=== PATIENT | female | born 1945 | race Caucasian/White ===

== ENCOUNTER 2018-02-13 14:47 | Outpatient (REF) | payer MEDICARE, MEDICAID, SELFPAY ==
[2018-02-13 15:39] LABS: Bilirubin Negative (Negative); Blood Trace-intact (Negative); Clarity Cloudy; Glucose Negative (Negative); Ketones Negative (Negative); Leukocyte Esterase Moderate (Negative); Nitrite Positive (Negative); Urobilinogen 0.2 EU/dL (Up TO 0.2)
[2018-02-13 16:53] LABS: Bacteria Many HPF (Negative); C & S Indicated? Yes; Casts Negative LPF (Negative); Crystals Negative HPF (Negative); Epithelial Cells Negative HPF (Negative); Mucus Negative (Negative); Other Cells Negative (Negative); RBC 0-2 (0-2); WBC 20-50 HPF (0-5)
== END 2018-02-13 15:07 ==
LOC: LBN 14:47
PROVIDERS: PCP Family Medicine; Visit Provider Family Medicine
DX: N39.0 Urinary tract infection, site not specified (principal)
CPT/HCPCS: 87077; 81003; 81015; 87086; 87186

== ENCOUNTER 2019-12-25 11:31 | Outpatient (REF) | payer MEDICARE, MEDICAID, SELFPAY ==
[2019-12-25 11:59] LABS: Abs Immature Grans 0.01 10^3/uL (0.0-0.06); Absolute Basophil Count 0.05 10^3/uL (0.0-0.2); Absolute Eosinophil Count 0.17 10^3/uL (0.0-0.7); Absolute Lymphocyte Count 0.93 10^3/uL (1.2-3.4); Absolute Monocyte Count 0.82 10^3/uL (0.1-0.8); Absolute Neutrophil Count 5.52 10^3/uL (1.2-6.7); Basophils % 0.7; Eosinophils % 2.3; HCT 46.9 % (36.0-46.0); HGB 14.6 g/dL (11.2-15.7); Immature Grans % 0.1; Lymphocytes % 12.4; MCH 30.4 pg (27.0-33.0); MCHC 31.1 % (32.0-36.0); MCV 97.5 fL (80-95); MPV 11.6 fL (8.0-11.0); Monocytes % 10.9; Neutrophils % 73.6; Nucleated RBC 0 %; Platelet Count 230 10^3/uL (130-400); RBC 4.81 10^6/uL (3.93-5.22); RDW 12.7 % (11.7-14.6); RDW-SD 45.7 fL
[2019-12-25 12:04] LABS: Anion Gap 5.4 mmol/L (3-11); BUN 12 mg/dL (7-18); CO2 31.6 mmol/L (21.0-32.0); CREATININE 0.77 mg/dL (0.55-1.02); Chloride 99 mmol/L (98-107); Glucose 110 mg/dL (74-106); Potassium 4.4 mmol/L (3.5-5.1); Sodium 136 mmol/L (136-145)
[2019-12-25 12:09] LABS: Calcium 8.8 mg/dL (8.5-10.1)
== END 2019-12-25 11:51 ==
LOC: LBN 11:31
PROVIDERS: PCP Family Medicine; Visit Provider Family Medicine
DX: J44.9 Chronic obstructive pulmonary disease, unspecified (principal); R05 Cough; F20.9 Schizophrenia, unspecified
CPT/HCPCS: 80048; 85025

== ENCOUNTER 2020-05-05 20:11 | Outpatient (REF) | payer MEDICARE, MEDICAID, SELFPAY ==
[2020-05-05 14:04] LABS: Abs Immature Grans 0.04 10^3/uL (0.0-0.06); Absolute Basophil Count 0.05 10^3/uL (0.0-0.2); Absolute Eosinophil Count 0.01 10^3/uL (0.0-0.7); Absolute Monocyte Count 0.39 10^3/uL (0.1-0.8); Basophils % 0.4; Eosinophils % 0.1; HCT 50.3 % (36.0-46.0); HGB 15.9 g/dL (11.2-15.7); Immature Grans % 0.3; Lymphocytes % 7.4; MCH 30.8 pg (27.0-33.0); MCHC 31.6 % (32.0-36.0); MCV 97.3 fL (80-95); MPV 11.7 fL (8.0-11.0); Monocytes % 2.9; Neutrophils % 88.9; Nucleated RBC 0 %; Platelet Count 286 10^3/uL (130-400); RBC 5.17 10^6/uL (3.93-5.22); RDW 13.1 % (11.7-14.6); RDW-SD 47.4 fL; WBC 13.48 10^3/uL (4.4-10.8)
[2020-05-05 14:05] LABS: Absolute Neutrophil Count 11.98 10^3/uL (1.2-6.7)
[2020-05-05 14:12] LABS: Anion Gap 6.9 mmol/L (3-11); BUN 24 mg/dL (7-18); CO2 33.1 mmol/L (21.0-32.0); CREATININE 0.8 mg/dL (0.55-1.02); Calcium 9.4 mg/dL (8.5-10.1); Chloride 99 mmol/L (98-107); Glucose 123 mg/dL (74-106); Potassium 4.2 mmol/L (3.5-5.1); Sodium 139 mmol/L (136-145)
== END 2020-05-05 20:12 | disposition home or self-care (01) ==
LOC: NCHCN 20:11
PROVIDERS: PCP Family Medicine; Visit Provider Family Medicine
DX: R53.83 Other fatigue (principal); J44.9 Chronic obstructive pulmonary disease, unspecified; J06.9 Acute upper respiratory infection, unspecified; J44.1 Chronic obstructive pulmonary disease with (acute) exacerbation
CPT/HCPCS: 80048; 85025

== ENCOUNTER 2020-05-06 12:48 | Inpatient (IN) | payer MEDICARE, MEDICAID, SELFPAY ==
[2020-05-06] VITALS (33 sets, daily range): BP systolic 157–181; BP diastolic 73–93; PULSE 88–119; RESP 14–28; TEMP 32–36.8; O2SAT 80–97
--- NOTE | 2020-05-06 11:00 | DI.RAD_ITS ---
TECHNIQUE: 2D digital imaging was performed. COMPARISON: No exams were available for comparison FINDINGS: MEDIASTINUM: Normal. HEART: Normal. PULMONARY VASCULATURE: Normal. LUNGS: Linear atelectasis is seen in the left lung base. No focal consolidating infiltrates. PLEURAL SPACE: No pleural effusion or pneumothorax. BONE:Within normal limits for the patient's age. There is a mild right convex curvature of the thora cic spine. OTHER FINDINGS:Normal. IMPRESSION: No acute pulmonary findings. DATA REPOSITORY: RADIATION DOSE DELIVERED:
[2020-05-06] MEDS: Cefepime 2 GM VIAL (12:48)
[2020-05-06] MEDS: Doxycycline 100 MG VIAL (12:48)
[2020-05-06] MEDS: methylPREDNISolone SUCC 125 MG VIAL (12:48)
--- NOTE | 2020-05-06 13:45 | RT.EKG_ITS ---
APPROVED REPORT Exam: Resting ECG Patient Location: E HR:105 bpm ECG Measurements Heart Rate 105 AXIS IN 162 P 93 QRSd 79 QRS 80 QT 349 T 51 QTc 463 Conclusion Sinus tachycardia...rate> 99
--- NOTE | 2020-05-06 14:28 | RESPIRATORY ---
05/06/20 Pt with hx of COPD with rhonchorous breath sounds brought in by [facility] on 3 LPM NC SPO2 91%. A few houors after Pt's ED stay it is noted that Pt is desatting to 83% on 4 LPM NC. Pt was transitioned to High Flow NC System . Pt was also given an acapella to to clear secretions. Pt needs 1:1 instructions for use.
[2020-05-06 15:00] LABS: Prothrombin Time 9.7 sec (9.3-11.0)
[2020-05-06 15:01] LABS: Lactate 1.2 mmol/L (0.6-1.4)
[2020-05-06 15:02] LABS: ALT 22 U/L (14-59); AST 19 U/L (15-37); Albumin 3.4 g/dL (3.4-5.0); Alkaline Phosphatase 82 U/L (46-116); BUN 28 mg/dL (7-18); Bilirubin, Direct 0.1 mg/dL (0.0-0.2); Bilirubin, Total 0.5 mg/dL (0.2-1.0); CREATININE 0.8 mg/dL (0.55-1.02); Calcium 9.3 mg/dL (8.5-10.1); Chloride 99 mmol/L (98-107); Glucose 137 mg/dL (74-106); Potassium 4.1 mmol/L (3.5-5.1); Sodium 136 mmol/L (136-145); Total Protein 7.7 g/dL (6.4-8.2)
[2020-05-06 15:03] LABS: HCT 49.4 % (36.0-46.0); MCH 31.1 pg (27.0-33.0); MCHC 32.4 % (32.0-36.0); MCV 96.1 fL (80-95); Magnesium 2.4 mg/dL (1.8-2.4); NT-proBNP 49 pg/mL (<300); RBC 5.14 10^6/uL (3.93-5.22); Troponin I < 0.05 ng/mL (<0.06); WBC 13.85 10^3/uL (4.4-10.8)
[2020-05-06 15:04] LABS: Abs Immature Grans 0.05 10^3/uL (0.0-0.06); Absolute Basophil Count 0.03 10^3/uL (0.0-0.2); Absolute Lymphocyte Count 1.29 10^3/uL (1.2-3.4); Absolute Monocyte Count 0.15 10^3/uL (0.1-0.8); Absolute Neutrophil Count 12.33 10^3/uL (1.2-6.7); Basophils % 0.2; Immature Grans % 0.4; Lymphocytes % 9.3; MPV 10.6 fL (8.0-11.0); Monocytes % 1.1; Nucleated RBC 0 %; Platelet Count 279 10^3/uL (130-400); RDW 13.3 % (11.7-14.6); RDW-SD 47.7 fL
[2020-05-06 15:19] LABS: COVID-19 PCR Negative (Negative); Influenza A PCR Negative (Negative); Influenza B PCR Negative (Negative); RSV PCR Negative (Negative)
--- NOTE | 2020-05-06 16:20 | W.ED.FU ---
Please refer to downtime paper documentation regarding ED course.
--- NOTE | 2020-05-06 16:38 | HPE_ITS ---
Date of service: 05/06/20 Time of Service: 16:38 Assessment and Plan Assessment and plan (1) COPD (chronic obstructive pulmonary disease): Status: Chronic Assessment and plan: This appears to be COPD exacerbation perhaps brought on by a viral illness. She is Covid negative, flu negative, RSV negative. Her chest x-ray does not show a specific infiltrate. She is profoundly hypoxic. I believe there is mucous plugging going on because of her poor ability to clear secretions. We will try improved pulmonary toilet, oxygen supplementation, corticosteroids. Empiric treatment with cefepime which should cover nosocomial pathogens such as Pseudomonas. She has been on azithromycin and Levaquin prior. Blood cultures are pending. She is tolerating high flow nasal cannula at this time. (2) Schizophrenia: Status: Chronic Assessment and plan: Longstanding underlying schizophrenia. She only allows limited interventions. Management at the [facility] included mostly allowing her to refuse treatments and limit things that aggravate her. She is DNR/DNI. I confirmed this with her guardian. History of Present Illness History of Present Illness Chief Complaint: COPD exacerbation/hypoxia N arrative: This is a 74-year-old woman who resides at the [facility]. Today she was noted to be markedly hypoxic. She was sitting on the chair in the living room with 2 L of nasal cannula oxygen measuring 84% saturation. She was congested coughing. She had been on a course of azithromycin and as of today received a dose of Levaquin 750 mg with plans to start a prednisone taper tomorrow. Given her deteriorating status she was sent to the emergency room today for further evaluation. In the emergency room her initial sats were in the low 80% range. When prompted to cough or deep breath she could bring them up but for the most part simple nasal cannula oxygen was not resolving her hypoxia. She was transition to high flow nasal cannula at 45 L / 70% and she is maintaining her sats in the 96% range. She is started on cefepime, doxycycline, Solu-Medrol. She is admitted to [facility] for further monitoring. Review of Systems Narrative: Patient has always had a harsh raspy cough. She allows only limited interventions. She will follow commands to help clear secretions but usually will do it on her own. She has been a behavioral problem at times with outbursts. She prefers to be left alone. She only allows limited interventions. Taking blood pressures tends to set her off. She has preferred a hands off type of management. Staff at the [facility] note that she has been increasingly weak lately and are requesting a physical therapy consult. [facility] Medical History (Updated 05/06/20 @ 16:44 by Soy Deng MD) Adhesive capsulitis COPD (chronic obstructive pulmonary disease) Dysthymic disorder Emphysema of lung History of tobacco use Hypertension Olecranon bursitis Recurrent vomiting Schizophrenia Surgical History (Updated 05/06/20 @ 16:44 by Soy Deng MD) History of appendectomy History of total abdominal hysterectomy Social History (Updated 05/06/20 @ 16:46 by Soy Deng MD) Smoking/Tobacco Use Status: Former Tobacco Use tobacco type: cigarettes Smoking risk assessment performed?: Yes Alcohol Intake: former Additional Social history: Sister, Bridget Joseph, he is her guardian. [id number] Meds Home Medications and Allergies Allergies Allergy/AdvReac Type Severity Reaction Status Date / Time wool Allergy Unverified 05/06/20 14:20 Home Medications Medication Instructions Recorded Confirmed Type acetaminophen [Acetaminophen Extra 500 mg PO QID PRN 05/06/20 05/06/20 History Strength] citalopram [Celexa] 20 mg PO DAILY 05/06/20 05/06/20 History dextromethorphan-guaifenesin 10 ml Q4H PRN PRN 05/06/20 05/06/20 History [Tussin Cough DM] ergocalciferol (vitamin D2) See Rx Instructions .ROUTE .COMPLEX 05/06/20 05/06/20 History [Drisdol] ipratropium-albuterol [Combivent] 1 spray INHALATION Q4H WHILE AWAKE 05/06/20 05/06/20 History levofloxacin [Levaquin] 750 mg PO Q24H 05/06/20 05/06/20 History prednisone See Rx Instructions .ROUTE .COMPLEX 05/06/20 05/06/20 History risperidone [Risperdal] 0.5 mg PO TID 05/06/20 05/06/20 History Exam Narrative Exam Narrative: On exam she is quite disheveled appearing. She will converse but at times gets somewhat irritated. She has a wet sounding cough with a lot of upper airway transmitted sounds. Her lung sounds are notable for rhonchorous breath sounds throughout. No specific rales are heard. Her heart sounds are notable for a low buzzing murmur in the left upper sternal border 1-2 over 6. Her abdomen quite rounded soft and overall nontender. Her legs show some overlying hair there is no significant edema they overall appear to be well perfused. She has no open sores or lesions. Neurologically she is moving upper and lower extremities well and can follow commands. Results Labs Result diagrams: 05/06/20 10:55 05/06/20 10:55 Labs: Laboratory Results - last 24 hr 05/06/20 05/06/20 05/06/20 10:55 10:55 10:55 WBC 13.85 H RBC 5.14 Hgb 16.0 H Hct 49.4 H MCV 96.1 H MCH 31.1 MCHC 32.4 RDW 13.3 Plt Count 279 MPV 10.6 Immature Gran % 0.4 Neutrophils % 89.0 Lymphocytes % 9.3 Monocytes % 1.1 Eosinophils % 0.0 Basophils % 0.2 Nucleated RBC % 0 Absolute Neutrophils 12.33 H Absolute Lymphocytes 1.29 Absolute Monocytes 0.15 Absolute Eosinophils 0.00 Absolute Basophils 0.03 PT 9.7 INR 1.0 VBG Lactate Sodium 136 Potassium 4.1 Chloride 99 Carbon Dioxide 31.0 Anion Gap 6.0 BUN 28 H Creatinine 0.8 Estimated GFR/1.73 m2 >= 60.00 Glucose 137 H Calcium 9.3 Magnesium 2.4 Total Bilirubin 0.5 Conjugated Bilirubin 0.1 AST 19 ALT 22 Alkaline Phosphatase 82 Troponin I < 0.05 NT-Pro-B Natriuret Pep 49 Total Protein 7.7 Albumin 3.4 COVID-19 Source SARS-CoV-2 (PCR) Influenza Type A (PCR) Influenza Type B (PCR) RSV (PCR) 05/06/20 05/06/20 10:55 11:07 WBC RBC Hgb Hct MCV MCH MCHC RDW Plt Count MPV Immature Gran % Neutrophils % Lymphocytes % Monocytes % Eosinophils % Basophils % Nucleated RBC % Absolute Neutrophils Absolute Lymphocytes Absolute Monocytes Absolute Eosinophils Absolute Basophils PT INR VBG Lactate 1.2 Sodium Potassium Chloride Carbon Dioxide Anion Gap BUN Creatinine Estimated GFR/1.73 m2 Glucose Calcium Magnesium Total Bilirubin Conjugated Bilirubin AST ALT Alkaline Phosphatase Troponin I NT-Pro-B Natriuret Pep Total Protein Albumin COVID-19 Source Nasopharyx SARS-CoV-2 (PCR) Negative Influenza Type A (PCR) Negative Influenza Type B (PCR) Negative RSV (PCR) Negative Last Vital Signs Pulse 91 H 05/06/20 15:16 Resp 17 05/06/20 16:00 BP 159/73 H 05/06/20 15:16 Pulse Ox 97 05/06/20 14:50 COVID-19 Screening Have you, or household traveled for leisure in last 14 days?: No Recent travel in the [place] within the last 14 days?: No Recent out of the country travel within the last 14 days?: No Exposure or possible exposure to illness during travel?: No Had IN PERSON contact w/suspected or confirmed C-19 person: No Symptoms noted since travel?: Lower Respiratory (Cough)
[2020-05-06 19:12] LABS: D-Dimer 447 ng/mlFEU (<500)
[2020-05-06] MEDS: risperiDONE 0.5 MG TAB PO (20:08)
[2020-05-06] MEDS: methylPREDNISolone SUCC 40 MG VIAL IVP (20:09)
[2020-05-06] MEDS: Normal Saline Flush 10 ML SYR IVP (20:09)
[2020-05-06] MEDS: Ipratropium/Albuterol 4 GM 120 PUFF INH IH ×2 (20:57→23:30)
[2020-05-06] MEDS: CEFEPIME 2 GM in Normal Saline 100 ML IVPB (23:26)
[2020-05-07] VITALS (7 sets, daily range): BP systolic 151–177; BP diastolic 71–92; PULSE 63–75; RESP 17–24; TEMP 31–36.4; O2SAT 92–95
[2020-05-07] MEDS: Metoprolol 25 MG TAB PO ×3 (00:08→20:00)
[2020-05-07] MEDS: Ipratropium/Albuterol 4 GM 120 PUFF INH IH ×6 (04:07→23:19)
[2020-05-07] MEDS: methylPREDNISolone SUCC 40 MG VIAL IVP ×3 (04:07→20:00)
[2020-05-07] MEDS: Normal Saline Flush 10 ML SYR IVP ×3 (04:08→19:59)
[2020-05-07 07:06] LABS: Abs Immature Grans 0.05 10^3/uL (0.0-0.06); Absolute Eosinophil Count 0.01 10^3/uL (0.0-0.7); Absolute Monocyte Count 0.36 10^3/uL (0.1-0.8); Basophils % 0.2; Eosinophils % 0.1; HGB 15.1 g/dL (11.2-15.7); Immature Grans % 0.4; Lymphocytes % 6.5; MCH 30.7 pg (27.0-33.0); MCHC 32.1 % (32.0-36.0); MCV 95.5 fL (80-95); MPV 10.4 fL (8.0-11.0); Monocytes % 2.8; Nucleated RBC 0 %; Platelet Count 283 10^3/uL (130-400); RBC 4.92 10^6/uL (3.93-5.22); WBC 12.71 10^3/uL (4.4-10.8)
[2020-05-07 07:12] LABS: Absolute Basophil Count 0.03 10^3/uL (0.0-0.2); Absolute Lymphocyte Count 0.83 10^3/uL (1.2-3.4); Absolute Neutrophil Count 11.44 10^3/uL (1.2-6.7)
[2020-05-07 07:15] LABS: Anion Gap 7.5 mmol/L (3-11); BUN 20 mg/dL (7-18); CO2 30.5 mmol/L (21.0-32.0); CREATININE 0.7 mg/dL (0.55-1.02); Calcium 9.1 mg/dL (8.5-10.1); Chloride 100 mmol/L (98-107); Glucose 143 mg/dL (74-106); Potassium 3.9 mmol/L (3.5-5.1); Sodium 138 mmol/L (136-145)
[2020-05-07] MEDS: Omeprazole 20 MG CAPCR PO (08:40)
[2020-05-07] MEDS: risperiDONE 0.5 MG TAB PO ×3 (08:40→20:00)
[2020-05-07] MEDS: Citalopram 20 MG TAB PO (08:40)
[2020-05-07 10:22] LABS: Procalcitonin < 0.1 ng/mL
--- NOTE | 2020-05-07 10:22 | NT_ITS ---
Date of service: 05/07/20 Time of Service: 10:33 PT Notes Visit Reasons: Pneumonia Lynn was gently approached today for a possible PT evaluaation. Patient refused strongly stating that she does not like exercises even while she was at the SNF she resides in. [employer] Sophie was updated about patient's refusal. Thank you for the opportunity to participate in the care of this patient. Xiao Purdy PT, DPT, CLT [facility] [place], [place]
--- NOTE | 2020-05-07 11:50 | W.PM.DS.N ---
Date of service: 05/08/20 Time of Service: 10:47 DS: Diagnosis Discharge Diagnosis (1) COPD (chronic obstructive pulmonary disease): (2) Schizophrenia: Discharge Plan Disposition Patient Disposition: ICF (LEVEL 2) [facility] Condition: Improving Discharge Details Reason For Visit: PNEUMONIA Admit Date/Time: 05/06/20 14:04 Admit Provider: Adithya Negron Attending Provider: Adithya Negron Primary Care Provider: Divya Beverly [facility] Course Hospital Course: This is a 74-year-old woman who resides at the [facility]. she was being treated outpatient for copd exac and was placed on azithromycin and oral steroids. she was noted to be hypoxic to 84% while at rest with 2 L of nasal cannula oxygen. Her azithromycin was changed to and she received a dose of Levaquin 750 mg with plans to start a prednisone taper. Given her deteriorating status she was sent to the emergency room today for further evaluation. Work up in the ED showed stable vitals, hypoxia, and no evidence of pneumonia on xray, her covid testing was negative. She is started on cefepime, doxycycline, Solu-Medrol and admitted to [facility] for further monitoring. She was non compliant with evaluation by physical therapy, refused some medication, but is oxygenating well on room air now. It is reasonable at this point to transition her to oral medication and discharge her back to her environment which may be more conducive to her recovery. Since she had only received one dose of her antibiotic outpatient, it is reasonable to finish the course she was to receive. She will be discharged to complete her course of levaquin and taper steroids as directed. discharge discussed with Dr Negron. Home Meds and New Rx's Prescriptions: Continued ranitidine HCl 150 mg tablet 150 mg PO BID Qty: 180 RF: 4 meloxicam 15 MG tablet 15 mg PO DAILY RF: 0 alendronate 70 MG tablet 70 mg PO .WEEKLY RF: 0 aspirin [Aspir-81] 81 MG tablet,delayed release (DR/EC) 81 mg PO DAILY RF: 0 risperidone [Risperdal] 2 MG tablet 2 mg PO HS RF: 0 sodium bicarbonate 650 MG tablet 1,300 mg PO BID RF: 0 paroxetine HCl 20 MG tablet 20 mg PO DAILY RF: 0 conjugated estrogens [Premarin] 0.625 MG tablet 0.625 mg PO DAILY RF: 0 nifedipine [Adalat CC] 60 MG tablet extended release 60 mg PO DAILY RF: 0 multivitamin 1 EACH capsule 1 tab PO DAILY RF: 0 calcium carbonate [Tums] 200 MG tablet,chewable 1 tab PO TID RF: 0 oxycodone-acetaminophen 1 TAB tablet 1 tab PO Q4H PRN PRN (Reason: Pain) Qty: 60 RF: 0 hydrocodone-acetaminophen 1 TAB tablet 0.5 - 1 tab PO Q4H PRN PRN (Reason: Pain) Qty: 20 RF: 0 dextromethorphan-guaifenesin 10-100 mg/5 mL Liquid 10 ml Q4H PRN PRN (Reason: Cough) RF: 0 acetaminophen [Acetaminophen Extra Strength] 500 mg Tablet 500 mg PO QID PRNRF: 0 ipratropium-albuterol 18-103 mcg/actuation Aerosol 1 spray INHALATION Q4H WHILE AWAKE RF: 0 levofloxacin 750 mg Tablet 750 mg PO Q24H RF: 0 citalopram [Celexa] 20 mg Tablet 20 mg PO DAILY RF: 0 ergocalciferol (vitamin D2) [Drisdol] 1,250 mcg (50,000 unit) Capsule See Rx Instructions .ROUTE .COMPLEX RF: 0 risperidone [Risperdal] 0.5 mg Tablet 0.5 mg PO TID RF: 0 prednisone 10 mg Tablet See Rx Instructions .ROUTE .COMPLEX RF: 0 Discontinued cephalexin 500 MG tablet 500 mg PO QID Qty: 56 RF: 0 cephalexin 500 MG capsule 500 mg PO Q6H Qty: 30 RF: 1 Discharge Instructions Instructions: COPD (Chronic Obstructive Pulmonary Disease) (DC) Additional Instructions: continue levaquin as previously directed. continue steroid taper as previously directed. push fluids to stay well hydrated. resume other usual medications as directed. Stand Alone Forms: Nursing Discharge Form Referrals: Practice Provider [Provider Group] (with pcp in 2-3 days) Activity:: Activity as Tolerated Equipment/Supplies:: No Equipment Needed Diet:: As Tolerated Discharge Orders Discharge Orders: Discharge Order (Routine); Ordered 05/08/20 Ordered By: Sophie Beckwith Discharge Data Discharge Date/Time-TO BE ENTERED AT DEPARTURE: 05/08/20 12:07 DS: Summary Time Spent with Patient providing and/or coordinating discharge services: Greater than 30 minutes Status at Discharge Functional status at discharge: uses cane/walker Overall status at discharge: patient is progressing back to baseline Mental Status: mental status grossly normal Speech and Movement: speech and movement normal Mood: labile mood Affect: irritable affect Exam Const General: no acute distress and ill appearing chronically Nutritional Appearance: overweight Orientation: alert and awake HENMT Head: normal to inspection, normocephalic and atraumatic Mouth: oral mucosae normal Chest Chest: normal inspection of the chest Resp Effort & Inspection: normal respiratory effort Auscultation: diminished lung sounds (scattered course breath sound) bilaterally in the lower lung gillespie Cardio Rate: regular rate Rhythm: regular rhythm GI Inspection: normal to inspection Palpation: soft Auscultation: normal bowel sounds Neuro General: patient alert, patient awake and moves all extremities Psych Mental Status: mental status grossly normal Speech and Movement: speech and movement normal Mood: labile mood Affect: irritable affect DS: Data Vitals/I&O Vitals and I&O: Vital Signs Temperature 36.3 C L 05/07/20 11:42 Temperature Source Tympanic 05/07/20 11:42 Pulse 69 05/07/20 11:42 Pulse Rhythm Regular 05/06/20 21:03 Pulse 109 H 05/06/20 16:00 Respiratory Rate 19 05/07/20 11:42 Respiratory Effort Short of Breath 05/06/20 21:03 Respiratory Depth Normal 05/06/20 21:03 Respiratory Pattern Normal 05/06/20 21:03 Blood Pressure 151/71 H 05/07/20 11:42 Blood Pressure Mean 94 05/06/20 15:16 Pulse Oximetry 95 05/07/20 11:42 Oxygen Delivery Method Bi-pap 05/07/20 11:42 Oxygen Flow Rate 0 05/07/20 11:42 Fraction of Inspired Oxygen (FIO2) 40 05/07/20 08:00 Pain Level 0 05/06/20 23:44 Comment 05/07/20 03:00 Intake & Output 05/06/20 05/06/20 05/07/20 11:59 23:59 11:59 Intake Total 240 / 240 Balance 240 / 240 Weight 75 kg 73.1 kg Intake: Oral 240 / 240 Other: Urine Color Yellow Urine Appearance Clear Urine Odor Strong Voiding Methods Bedside Commode Incontinent Data Completed and Pending Labs on day of discharge: Labs from last 24 hours 05/07/20 05/07/20 05/07/20 06:25 06:25 06:25 WBC 12.71 H RBC 4.92 Hgb 15.1 Hct 47.0 H MCV 95.5 H MCH 30.7 MCHC 32.1 RDW 13.0 Plt Count 283 MPV 10.4 Immature Gran % 0.4 Neutrophils % 90.0 Lymphocytes % 6.5 Monocytes % 2.8 Eosinophils % 0.1 Basophils % 0.2 Nucleated RBC % 0 Absolute Neutrophils 11.44 H Absolute Lymphocytes 0.83 L Absolute Monocytes 0.36 Absolute Eosinophils 0.01 Absolute Basophils 0.03 PT INR D-Dimer VBG Lactate Sodium Potassium Chloride Carbon Dioxide Anion Gap BUN Creatinine Estimated GFR/1.73 m2 Glucose Calcium Magnesium Total Bilirubin Conjugated Bilirubin AST ALT Alkaline Phosphatase Troponin I C-Reactive Protein 0.30 NT-Pro-B Natriuret Pep Total Protein Albumin Procalcitonin < 0.1 COVID-19 Source SARS-CoV-2 (PCR) Influenza Type A (PCR) Influenza Type B (PCR) RSV (PCR) 05/07/20 05/06/20 05/06/20 06:25 11:07 10:55 WBC RBC Hgb Hct MCV MCH MCHC RDW Plt Count MPV Immature Gran % Neutrophils % Lymphocytes % Monocytes % Eosinophils % Basophils % Nucleated RBC % Absolute Neutrophils Absolute Lymphocytes Absolute Monocytes Absolute Eosinophils Absolute Basophils PT INR D-Dimer VBG Lactate 1.2 Sodium 138 Potassium 3.9 Chloride 100 Carbon Dioxide 30.5 Anion Gap 7.5 BUN 20 H D Creatinine 0.7 Estimated GFR/1.73 m2 >= 60.00 Glucose 143 H Calcium 9.1 Magnesium Total Bilirubin Conjugated Bilirubin AST ALT Alkaline Phosphatase Troponin I C-Reactive Protein NT-Pro-B Natriuret Pep Total Protein Albumin Procalcitonin COVID-19 Source Nasopharyx SARS-CoV-2 (PCR) Negative Influenza Type A (PCR) Negative Influenza Type B (PCR) Negative RSV (PCR) Negative 05/06/20 05/06/20 05/06/20 10:55 10:55 10:55 WBC 13.85 H RBC 5.14 Hgb 16.0 H Hct 49.4 H MCV 96.1 H MCH 31.1 MCHC 32.4 RDW 13.3 Plt Count 279 MPV 10.6 Immature Gran % 0.4 Neutrophils % 89.0 Lymphocytes % 9.3 Monocytes % 1.1 Eosinophils % 0.0 Basophils % 0.2 Nucleated RBC % 0 Absolute Neutrophils 12.33 H Absolute Lymphocytes 1.29 Absolute Monocytes 0.15 Absolute Eosinophils 0.00 Absolute Basophils 0.03 PT 9.7 INR 1.0 D-Dimer 447 VBG Lactate Sodium 136 Potassium 4.1 Chloride 99 Carbon Dioxide 31.0 Anion Gap 6.0 BUN 28 H Creatinine 0.8 Estimated GFR/1.73 m2 >= 60.00 Glucose 137 H Calcium 9.3 Magnesium 2.4 Total Bilirubin 0.5 Conjugated Bilirubin 0.1 AST 19 ALT 22 Alkaline Phosphatase 82 Troponin I < 0.05 C-Reactive Protein NT-Pro-B Natriuret Pep 49 Total Protein 7.7 Albumin 3.4 Procalcitonin COVID-19 Source SARS-CoV-2 (PCR) Influenza Type A (PCR) Influenza Type B (PCR) RSV (PCR) 05/06/20 16:10 Nose MRSA Screen - Pending 05/06/20 11:40 Blood Blood Culture - Pending 05/06/20 11:15 Blood Blood Culture - Pending Preliminary micro results at discharge 05/06/20 16:10 MRSA Screen - Pending Nose 05/06/20 11:40 Blood Culture - Pending Blood 05/06/20 11:15 Blood Culture - Pending Blood [facility] Medical History (Updated 05/07/20 @ 14:38 by Suze Phillips) Adhesive capsulitis COPD (chronic obstructive pulmonary disease) Dysthymic disorder Emphysema of lung History of tobacco use Hypertension Olecranon bursitis Recurrent vomiting Schizophrenia Surgical History (Updated 05/07/20 @ 14:38 by Suze Phillips) History of appendectomy History of total abdominal hysterectomy Social History (System 05/07/20 @ 14:38 by Suze Phillips) Smoking/Tobacco Use Status: Former Tobacco Use tobacco type: cigarettes Smoking risk assessment performed?: Yes Alcohol Intake: former Drug use: Never Additional Social history: Sister, Bridget Joseph, he is her guardian. [phone]
[2020-05-07] MEDS: CEFEPIME 2 GM in Normal Saline 100 ML IVPB (11:53)
[2020-05-07] MEDS: Normal Saline 500 ML 30 ML IV (11:55)
--- NOTE | 2020-05-07 15:22 | W.PM.PROGNOT ---
Date of Service Date of service: 05/07/20 Time of Service: 15:22 Assessment and Plan Assessment and plan (1) Schizophrenia: Status: Chronic Assessment and plan: Longstanding underlying schizophrenia. She only allows limited interventions. Management at the [facility] included mostly allowing her to refuse treatments and limit things that aggravate her. (2) COPD (chronic obstructive pulmonary disease): Status: Chronic Assessment and plan: COPD exacerbation perhaps brought on by a viral illness. Covid negative, flu negative, RSV negative. Her chest x-ray does not show a specific infiltrate. She is now oxygenating well on room air. was placed on IV steroids, cefepime Subjective Subjective Patient reports: no new complaints, tolerating liquids well, tolerating a regular diet and afebrile Exam Const General: no acute distress and ill appearing chronically Nutritional Appearance: overweight Orientation: alert and awake HENMA Head: normal to inspection, normocephalic and atraumatic Mouth: oral mucosae normal Chest Chest: normal inspection of the chest Resp Effort & Inspection: normal respiratory effort Auscultation: diminished lung sounds (scattered course breath sound) bilaterally in the lower lung gillespie Cardio Rate: regular rate Rhythm: regular rhythm GI Inspection: normal to inspection Palpation: soft Auscultation: normal bowel sounds Neuro General: patient alert, patient awake and moves all extremities Objective Last Vital Signs Temp 36.3 C L 05/07/20 11:42 Pulse 69 05/07/20 11:42 Resp 19 05/07/20 11:42 BP 151/71 H 05/07/20 11:42 Pulse Ox 95 05/07/20 11:42 Laboratory Results - last 24 hr 05/06/20 05/07/20 05/07/20 10:55 06:25 06:25 WBC 12.71 H RBC 4.92 Hgb 15.1 Hct 47.0 H MCV 95.5 H MCH 30.7 MCHC 32.1 RDW 13.0 Plt Count 283 MPV 10.4 Immature Gran % 0.4 Neutrophils % 90.0 Lymphocytes % 6.5 Monocytes % 2.8 Eosinophils % 0.1 Basophils % 0.2 Nucleated RBC % 0 Absolute Neutrophils 11.44 H Absolute Lymphocytes 0.83 L Absolute Monocytes 0.36 Absolute Eosinophils 0.01 Absolute Basophils 0.03 D-Dimer 447 Sodium 138 Potassium 3.9 Chloride 100 Carbon Dioxide 30.5 Anion Gap 7.5 BUN 20 H D Creatinine 0.7 Estimated GFR/1.73 m2 >= 60.00 Glucose 143 H Calcium 9.1 C-Reactive Protein Procalcitonin 05/07/20 05/07/20 06:25 06:25 WBC RBC Hgb Hct MCV MCH MCHC RDW Plt Count MPV Immature Gran % Neutrophils % Lymphocytes % Monocytes % Eosinophils % Basophils % Nucleated RBC % Absolute Neutrophils Absolute Lymphocytes Absolute Monocytes Absolute Eosinophils Absolute Basophils D-Dimer Sodium Potassium Chloride Carbon Dioxide Anion Gap BUN Creatinine Estimated GFR/1.73 m2 Glucose Calcium C-Reactive Protein 0.30 Procalcitonin < 0.1
--- NOTE | 2020-05-07 15:56 | PDOC.CMIN ---
- If Service Date Differs Date of service: 05/07/20 Time of Service: 15:56 Care Management Initial Assess REASON FOR HOSPITALIZATION:: Pneumonia PAST MEDICAL HISTORY/PAST SURGICAL HISTORY:: Medical History. Adhesive capsulitis. COPD (chronic obstructive pulmonary disease). Dysthymic disorder. Emphysema of lung. History of tobacco use. Hypertension. Olecranon bursitis. Recurrent vomiting. Schizophrenia. Surgical History. History of appendectomy. History of total abdominal hysterectomy PREVIOUS FUNCTIONAL STATUS/SOCIAL/FAMILY SUPPORTS:: Lynn lives at the [facility], and has for some time (unsure of how long d/t Lynn's reluctance to answer). She reported not having family or friends in the area. She relies on staff at the [facility] to complete her ADL's. CURRENT FUNCTIONAL STATUS:: Lynn was lying in bed when CM met with her. She was reluctant to talk to CM, but willing to answer some brief questions. Per report, she is refusing some meds, and refusing to work with PT. Per provider, she is ready to return to the [facility], but the [facility] was unable to accept her back today due to bed availability. She will return tomorrow. CM will continue to follow. ADVANCE DIRECTIVES:: None on file. Has patient been provided with info about the portal/API?: No Did the patient sign up for the portal?: No CODE STATUS:: DNR/DNI INSURANCE COVERAGE / FINANCIAL ISSUES:: MCR/ JEFF CURRENT HOME/COMMUNITY SERVICES/EQUIPMENT:: Lynn resides at the [facility], who assist her with ADL's. PRIMARY CARE PHYSICIAN:: Divya Beverly POTENTIAL DISCHARGE NEEDS:: Coordinated return to the [facility]. PATIENT/FAMILY EDUCATION NEEDS:: Review discharge instructions with pt and staff at the [facility], discussion of self care needs and goals of care. ANTICIPATED BARRIERS TO DISCHARGE:: Bed availability at the [facility]. TRANSPORTATION:: Via RCT w/c van vs ambulance, dependent on ambulation at time of discharge. PLAN:: Lynn will return to the [facility] tomorrow, as she is medically stable. CM will coordinate her return via RCT w/c van vs ambulance. She will follow up with her PCP and discharge plan of care. CM will continue to follow.
--- NOTE | 2020-05-07 16:00 | CHAPLAIN ---
Lynn was resting in bed when I visited. She didn't say much but was paying attention to what I said, although not responding. I'll try again.
[2020-05-07] MEDS: levoFLOXacin 500 MG, levoFLOXacin 250 MG 750 MG PO (18:01)
[2020-05-08] VITALS: BP 182/83; PULSE 58; RESP 18; TEMP 36.3; O2SAT 93
[2020-05-08 03:08] VITALS: BP 175/92; PULSE 59; RESP 20; TEMP 36.8; O2SAT 91
[2020-05-08] MEDS: Ipratropium/Albuterol 4 GM 120 PUFF INH IH ×3 (03:38→11:01)
[2020-05-08] MEDS: methylPREDNISolone SUCC 40 MG VIAL IVP (03:38)
[2020-05-08] MEDS: Normal Saline Flush 10 ML SYR IVP (03:39)
[2020-05-08 07:05] VITALS: BP 178/85; PULSE 73; RESP 18; TEMP 36.5; O2SAT 91
[2020-05-08 07:19] VITALS: BP 174/96; PULSE 64; RESP 18; TEMP 36.2; O2SAT 93
[2020-05-08] MEDS: Omeprazole 20 MG CAPCR PO (07:51)
[2020-05-08] MEDS: Citalopram 20 MG TAB PO (07:51)
[2020-05-08] MEDS: levoFLOXacin 500 MG, levoFLOXacin 250 MG 750 MG PO (07:51)
[2020-05-08] MEDS: Metoprolol 25 MG TAB PO (07:51)
[2020-05-08] MEDS: risperiDONE 0.5 MG TAB PO (08:00)
[2020-05-08 10:40] LABS: Vitamin D 25 Total 37.9 ng/ml (30-100)
--- NOTE | 2020-05-08 12:09 | TELEFU_ITS ---
Date of service: 05/08/20 Time of Service: 12:09 Nutritional Follow up NOTE: 74 year old female admitted from the [facility] with COPD. BMI indicates overweight status. Following regular soft bite diet with adequate intake. Not at nutritional risk at this time. Will continue to follow. Time Spent in Nutritional Counseling and Treatment: 0
--- NOTE | 2020-05-08 18:17 | CMDISCH_ITS ---
- If Service Date Differs Date of service: 05/08/20 Time of Service: 18:17 LACE Index Scoring Tool - Questions: Length of Stay (in days): 2 Acuity (Admit via E.D.?): Yes Comorbidities: Chronic Pulmonary Disease E.D. Visits: 1 - Answers: Total Score: 8 Risk of Readmission: Low Risk Care Management Discharge Reason for Hospitalization: Pneumonia Discharge Plan: Lynn will return to the [facility] where she resides. She was transported via [facility] ambulance. She will follow up with her PCP and discharge plan of care. Patient/Family Education Needs: Review discharge instructions with pt and staff at the [facility], discussion of self care needs and goals of care. Services Needed at Discharge: Nursing Home Facility ([facility]), Transportation (Ambulance)
== END 2020-05-08 12:07 | disposition intermediate care facility (04) | DRG 192 ==
LOC: ER 15:48 → MS 16:31
PROVIDERS: Family Medicine; Nurse Practitioner Gerontology; Admitting Provider Internal Medicine; Emergency Provider Student in an Organized Health Care Education/Training Program; PCP Family Medicine; Visit Provider Internal Medicine
DX: J44.1 Chronic obstructive pulmonary disease with (acute) exacerbation (principal); Z20.822 Contact with and (suspected) exposure to COVID-19; Z66 Do not resuscitate; F20.9 Schizophrenia, unspecified; R09.02 Hypoxemia; I10 Essential (primary) hypertension; Z87.891 Personal history of nicotine dependence
CPT/HCPCS: 36415; 80048; 80053; 80076; 82306; 84145; 87040; 87081; 93005; 94640; 96365; 96367; 96375; 99223; 99233; 99239; 99285; 71045; 83605; 83735; 83880; 84484; 85025; 85379; 85610; 86140; 93010; J2930; J3490

== ENCOUNTER 2020-05-17 11:47 | Outpatient (REF) | payer SELFPAY ==
[2020-05-17 12:49] LABS: Abs Immature Grans 0.11 10^3/uL (0.0-0.06); Absolute Basophil Count 0.04 10^3/uL (0.0-0.2); Absolute Lymphocyte Count 1.32 10^3/uL (1.2-3.4); Basophils % 0.2; Eosinophils % 0.2; HCT 47.2 % (36.0-46.0); HGB 15.6 g/dL (11.2-15.7); Immature Grans % 0.6; Lymphocytes % 7.2; MCH 31.1 pg (27.0-33.0); MCHC 33.1 % (32.0-36.0); MCV 94.2 fL (80-95); MPV 11.2 fL (8.0-11.0); Monocytes % 6.3; Neutrophils % 85.5; Nucleated RBC 0 %; Platelet Count 249 10^3/uL (130-400); RBC 5.01 10^6/uL (3.93-5.22); RDW 13.2 % (11.7-14.6); RDW-SD 45.5 fL; WBC 18.29 10^3/uL (4.4-10.8)
[2020-05-17 12:50] LABS: Absolute Eosinophil Count 0.04 10^3/uL (0.0-0.7); Absolute Monocyte Count 1.15 10^3/uL (0.1-0.8); Absolute Neutrophil Count 15.64 10^3/uL (1.2-6.7)
[2020-05-17 13:04] LABS: ALT 26 U/L (14-59); AST 16 U/L (15-37); Albumin 3.5 g/dL (3.4-5.0); Alkaline Phosphatase 66 U/L (46-116); Anion Gap 11.4 mmol/L (3-11); BUN 12 mg/dL (7-18); Bilirubin, Total 0.6 mg/dL (0.2-1.0); CO2 27.6 mmol/L (21.0-32.0); Calcium 9.4 mg/dL (8.5-10.1); Chloride 100 mmol/L (98-107); Glucose 97 mg/dL (74-106); Lipase 103 U/L (73-393); Potassium 3.4 mmol/L (3.5-5.1); Sodium 139 mmol/L (136-145); Total Protein 6.4 g/dL (6.4-8.2)
[2020-05-17 16:47] LABS: Bilirubin Negative (Negative); Blood Trace-intact (Negative); Clarity Clear (Clear); Glucose Negative (Negative); Ketones Negative (Negative); Leukocyte Esterase Negative (Negative); Nitrite Negative (Negative); Specific Gravity 1.015 (1.005-1.025); Urobilinogen 0.2 EU/dL (Up TO 0.2)
[2020-05-17 16:55] LABS: Bacteria Negative HPF (Negative); C & S Indicated? No; Casts Negative LPF (Negative); Crystals Negative HPF (Negative); Epithelial Cells Few HPF (Negative); Mucus Negative (Negative); Other Cells Rare Renal (Negative); RBC 0-2 HPF (0-2); WBC Negative HPF (0-5)
== END 2020-05-17 11:48 | disposition home or self-care (01) ==
LOC: LBN 11:47
PROVIDERS: PCP Family Medicine; Visit Provider Family Medicine
DX: N39.0 Urinary tract infection, site not specified (principal); J44.1 Chronic obstructive pulmonary disease with (acute) exacerbation; R29.6 Repeated falls; I10 Essential (primary) hypertension; R53.83 Other fatigue
CPT/HCPCS: 80053; 83690; 81003; 81015; 85025

== ENCOUNTER 2020-10-02 17:22 | Outpatient (REF) | payer MEDICARE, MEDICAID, SELFPAY ==
[2020-10-02 17:52] LABS: Abs Immature Grans 0.03 10^3/uL (0.0-0.06); Absolute Basophil Count 0.03 10^3/uL (0.0-0.2); Absolute Eosinophil Count 0.26 10^3/uL (0.0-0.7); Absolute Lymphocyte Count 1.74 10^3/uL (1.2-3.4); Absolute Monocyte Count 0.75 10^3/uL (0.1-0.8); Absolute Neutrophil Count 5.84 10^3/uL (1.2-6.7); Basophils % 0.3; HCT 47.3 % (36.0-46.0); HGB 14.8 g/dL (11.2-15.7); Immature Grans % 0.3; Lymphocytes % 20.1; MCH 30.5 pg (27.0-33.0); MCHC 31.3 % (32.0-36.0); MCV 97.3 fL (80-95); MPV 11.6 fL (8.0-11.0); Monocytes % 8.7; Neutrophils % 67.6; Nucleated RBC 0 %; Platelet Count 251 10^3/uL (130-400); RBC 4.86 10^6/uL (3.93-5.22); RDW 12.7 % (11.7-14.6); RDW-SD 45.6 fL; WBC 8.65 10^3/uL (4.4-10.8)
[2020-10-02 18:12] LABS: Anion Gap 8.2 mmol/L (3-11); BUN 13 mg/dL (7-18); CO2 27.8 mmol/L (21.0-32.0); CREATININE 0.7 mg/dL (0.55-1.02); Calcium 9.2 mg/dL (8.5-10.1); Chloride 104 mmol/L (98-107); Glucose 112 mg/dL (74-106); Potassium 4.1 mmol/L (3.5-5.1); Sodium 140 mmol/L (136-145)
== END 2020-10-02 17:23 | disposition home or self-care (01) ==
LOC: LBN 17:22
PROVIDERS: PCP Family Medicine; Visit Provider Family Medicine
DX: J44.9 Chronic obstructive pulmonary disease, unspecified (principal); R05 Cough
CPT/HCPCS: 80048; 85025

== ENCOUNTER 2020-11-28 12:27 | Outpatient (REF) | payer MEDICARE, MEDICAID, SELFPAY ==
[2020-11-27 18:56] LABS: Anion Gap 2.6 mmol/L (3-11); BUN 20 mg/dL (7-18); CO2 34.4 mmol/L (21.0-32.0); CREATININE 0.9 mg/dL (0.55-1.02); Calcium 9.4 mg/dL (8.5-10.1); Chloride 102 mmol/L (98-107); Glucose 150 mg/dL (74-106); Potassium 4.2 mmol/L (3.5-5.1); Sodium 139 mmol/L (136-145)
[2020-11-27 19:13] LABS: Abs Immature Grans 0.04 10^3/uL (0.0-0.06); Absolute Basophil Count 0.03 10^3/uL (0.0-0.2); Absolute Lymphocyte Count 0.63 10^3/uL (1.2-3.4); Absolute Monocyte Count 0.25 10^3/uL (0.1-0.8); Basophils % 0.2; HCT 47.2 % (36.0-46.0); HGB 14.5 g/dL (11.2-15.7); Immature Grans % 0.3; MCH 30.4 pg (27.0-33.0); MCHC 30.7 % (32.0-36.0); MPV 11.2 fL (8.0-11.0); Neutrophils % 92.5; Nucleated RBC 0 %; Platelet Count 297 10^3/uL (130-400); RBC 4.77 10^6/uL (3.93-5.22); RDW 13.7 % (11.7-14.6); WBC 12.59 10^3/uL (4.4-10.8)
[2020-11-27 19:21] LABS: Absolute Neutrophil Count 11.65 10^3/uL (1.2-6.7)
== END 2020-11-28 12:28 | disposition home or self-care (01) ==
LOC: LBN 12:27
PROVIDERS: PCP Family Medicine; Visit Provider Internal Medicine
DX: J44.1 Chronic obstructive pulmonary disease with (acute) exacerbation (principal); R06.02 Shortness of breath
CPT/HCPCS: 80048; 85025

== ENCOUNTER 2020-12-01 17:39 | Outpatient (REF) | payer MEDICARE, MEDICAID, SELFPAY ==
[2020-12-01 18:28] LABS: Abs Immature Grans 0.04 10^3/uL (0.0-0.06); Absolute Basophil Count 0.04 10^3/uL (0.0-0.2); Absolute Eosinophil Count 0.13 10^3/uL (0.0-0.7); Absolute Lymphocyte Count 1.66 10^3/uL (1.2-3.4); Absolute Monocyte Count 1.02 10^3/uL (0.1-0.8); Absolute Neutrophil Count 7.51 10^3/uL (1.2-6.7); Basophils % 0.4; Eosinophils % 1.3; HCT 47.7 % (36.0-46.0); HGB 15.2 g/dL (11.2-15.7); Immature Grans % 0.4; MCHC 31.9 % (32.0-36.0); MCV 97.1 fL (80-95); MPV 10.9 fL (8.0-11.0); Monocytes % 9.8; Neutrophils % 72.1; Nucleated RBC 0 %; Platelet Count 293 10^3/uL (130-400); RBC 4.91 10^6/uL (3.93-5.22); RDW 13.5 % (11.7-14.6); RDW-SD 48.9 fL
== END 2020-12-01 17:40 | disposition home or self-care (01) ==
LOC: LBN 17:39
PROVIDERS: PCP Family Medicine; Visit Provider Nurse Practitioner Gerontology
DX: J44.1 Chronic obstructive pulmonary disease with (acute) exacerbation (principal)
CPT/HCPCS: 85025

== ENCOUNTER 2021-02-12 18:14 | Outpatient (REF) | payer MEDICARE, MEDICAID, SELFPAY ==
[2021-02-12 18:03] LABS: Abs Immature Grans 0.09 10^3/uL (0.0-0.06); Absolute Basophil Count 0.03 10^3/uL (0.0-0.2); Absolute Lymphocyte Count 0.74 10^3/uL (1.2-3.4); Absolute Monocyte Count 0.06 10^3/uL (0.1-0.8); Absolute Neutrophil Count 6.57 10^3/uL (1.2-6.7); Basophils % 0.4; HCT 49.3 % (36.0-46.0); HGB 15.3 g/dL (11.2-15.7); Immature Grans % 1.2; Lymphocytes % 9.9; MCH 31.2 pg (27.0-33.0); MCV 100.4 fL (80-95); MPV 10.8 fL (8.0-11.0); Monocytes % 0.8; Neutrophils % 87.7; Nucleated RBC 0 %; Platelet Count 297 10^3/uL (130-400); RBC 4.91 10^6/uL (3.93-5.22); WBC 7.49 10^3/uL (4.4-10.8)
[2021-02-12 18:31] LABS: ALT 21 U/L (14-59); AST 20 U/L (15-37); Albumin 3.7 g/dL (3.4-5.0); Alkaline Phosphatase 93 U/L (46-116); Anion Gap 4.5 mmol/L (3-11); BUN 18 mg/dL (7-18); Bilirubin, Total 0.3 mg/dL (0.2-1.0); CO2 32.5 mmol/L (21.0-32.0); CREATININE 0.8 mg/dL (0.55-1.02); Calcium 9.2 mg/dL (8.5-10.1); Chloride 101 mmol/L (98-107); Glucose 215 mg/dL (74-106); Potassium 4.1 mmol/L (3.5-5.1); Sodium 138 mmol/L (136-145); Total Protein 7.2 g/dL (6.4-8.2)
== END 2021-02-12 18:15 | disposition home or self-care (01) ==
LOC: LBN 18:14
PROVIDERS: PCP Family Medicine; Visit Provider Internal Medicine
DX: J44.1 Chronic obstructive pulmonary disease with (acute) exacerbation (principal); R06.02 Shortness of breath; F20.5 Residual schizophrenia; J18.9 Pneumonia, unspecified organism
CPT/HCPCS: 80053; 85025; 87070; 87205

== ENCOUNTER 2021-03-04 16:02 | Outpatient (REF) | payer MEDICARE, MEDICAID, SELFPAY | END 2021-03-04 16:03 | disposition home or self-care (01) | LOC: LBN 16:02 | PROVIDERS: PCP Family Medicine; Visit Provider Nurse Practitioner Gerontology | CPT/HCPCS: 80053; 85025 ==

== ENCOUNTER 2021-03-05 10:04 | Emergency (ER) | payer MEDICARE, MEDICAID, SELFPAY ==
[2021-03-05] VITALS (31 sets, daily range): BP systolic 102–153; BP diastolic 56–78; PULSE 74–100; RESP 14–21; TEMP 36.7–37.1; O2SAT 85–97
--- NOTE | 2021-03-05 10:15 | DI.RAD_ITS ---
Exam(s) XR PORTABLE CHEST AP EXAM: XR PORTABLE CHEST AP CLINICAL HISTORY: shortness of breath, r/o acute disease TECHNIQUE: 2D digital imaging was performed of the chest. One image was obtained. An AP view was ob tained. COMPARISON: CR LEFT SHOULDER COMPLETE from 05/25/2013 CR XR PORTABLE CHEST AP from 05/06/2020 FINDINGS: MEDIASTINUM: Normal. HEART: Normal. PULMONARY VASCULATURE: Normal. LUNGS: No focal consolidating infiltrates. PLEURAL SPACE: No pleural effusion or pneumothorax. BONE:There is a displaced fracture through the proximal metaphysis of the right humerus. This is inc ompletely imaged on this examination. The age is indeterminate. OTHER FINDINGS:Normal. IMPRESSION: 1. No acute pulmonary findings. 2. Displaced proximal right humeral fracture. X-ray of the right shoulder is recommended for further evaluation. 3. Results of this exam have been verbally communicated with provider. DATA REPOSITORY: RADIATION DOSE DELIVERED:
--- NOTE | 2021-03-05 10:18 | ED.GENADUL_ITS ---
Discharge Plan Disposition Patient Disposition: HOME Condition: Stable Discharge Details Clinical Impression: Pneumonia, UTI (urinary tract infection), Fracture of proximal humerus Primary Care Provider: Divya Beverly ED Provider: Tiffanie Andujar Quinter Meds and New Rx's Prescriptions: New levofloxacin 750 mg tablet 750 mg PO DAILY 5 Days Qty: 5 RF: 0 Continued ranitidine HCl 150 mg tablet 150 mg PO BID Qty: 180 RF: 4 meloxicam 15 MG tablet 15 mg PO DAILY RF: 0 alendronate 70 MG tablet 70 mg PO .WEEKLY RF: 0 aspirin [Aspir-81] 81 MG tablet,delayed release (DR/EC) 81 mg PO DAILY RF: 0 risperidone [Risperdal] 2 MG tablet 2 mg PO HS RF: 0 sodium bicarbonate 650 MG tablet 1,300 mg PO BID RF: 0 paroxetine HCl 20 MG tablet 20 mg PO DAILY RF: 0 conjugated estrogens [Premarin] 0.625 MG tablet 0.625 mg PO DAILY RF: 0 nifedipine [Adalat CC] 60 MG tablet extended release 60 mg PO DAILY RF: 0 multivitamin 1 EACH capsule 1 tab PO DAILY RF: 0 calcium carbonate [Tums] 200 MG tablet,chewable 1 tab PO TID RF: 0 oxycodone-acetaminophen 1 TAB tablet 1 tab PO Q4H PRN PRN (Reason: Pain) Qty: 60 RF: 0 hydrocodone-acetaminophen 1 TAB tablet 0.5 - 1 tab PO Q4H PRN PRN (Reason: Pain) Qty: 20 RF: 0 dextromethorphan-guaifenesin 10-100 mg/5 mL Liquid 10 ml Q4H PRN PRN (Reason: Cough) RF: 0 acetaminophen [Acetaminophen Extra Strength] 500 mg Tablet 500 mg PO QID PRNRF: 0 ipratropium-albuterol 18-103 mcg/actuation Aerosol 1 spray INHALATION Q4H WHILE AWAKE RF: 0 citalopram [Celexa] 20 mg Tablet 20 mg PO DAILY RF: 0 ergocalciferol (vitamin D2) [Drisdol] 1,250 mcg (50,000 unit) Capsule See Rx Instructions .ROUTE .COMPLEX RF: 0 risperidone [Risperdal] 0.5 mg Tablet 0.5 mg PO TID RF: 0 prednisone 10 mg Tablet See Rx Instructions .ROUTE .COMPLEX RF: 0 Discharge Instructions Instructions: Urinary Tract Infection in Women (ED), Pneumonia (ED), Proximal Humerus Fracture (ED) Additional Instructions: Your lab work and imaging in the ED reveal that you have a possible urinary tract infection and a possible pneumonia. Your oxygen saturation dropped below 90% on room air so it is recommended that you use a minimum amount of nasal cannula oxygen to keep your oxygen saturation above 90%. You are being sent with a prescription for Levaquin to take as directed until finished. A shoulder x-ray also noted evidence of a proximal humerus fracture and unclear if this is a new or old fracture but as you are having pain, we will treat this as a potentially acute or subacute fracture with placement of a sling to wear u ntil follow-up with orthopedics. Follow-up with your primary care doctor in 1 week. Return to the emergency department with any worsening or new concerning symptoms. Referrals: Sandro Huerta MD [ [facility] STAFF PHYSICIAN] - Discharge Data Discharge Physician: Tiffanie Andujar Medical Decision Making 75yo F with a history of COPD, hypertension, GERD, schizophrenia, TIA who presents to the ED from the [facility] for report of abdominal pain and shortness of breath. Report per EMS that oxygen saturation was 88% on room air and increased to 95% on 2 L. It was reported that patient is not normally on oxygen. Patient cannot provide a history and when asked questions she states the mainly bastards. Her vitals are within normal limits and she appears in no acute distress. Abdomen is soft and nontender. Labs reviewed. White blood cell count 8. Hemoglobin 14. Normal renal function and lipase. Urinalysis notes positive nitrite with moderate bacteria but 0-2 WBCs and negative leukocyte esterase. Covid swab negative. Chest x-ray notes displaced right proximal humerus fracture. Patient is oriented x3 and does endorse right shoulder and upper arm pain but denies any recent fall and states she has had this pain for a long time. Right upper extremity notes a deformity in the proximal upper arm but no evidence of ecchymosis or cellulitis. Distal right upper extremity pulses intact. Will refer for right shoulder x-ray. Nursing attempted to decrease nasal cannula oxygen to 1 L and her oxygen saturation diminished to 88%. We will keep on 2 L nasal cannula and obtain CT chest and abdomen and pelvis CT chest abdomen and pelvis notes: IMPRESSION: 1. No evidence pulmonary embolism, thoracic aortic dissection or aneurysm. 2. Small infiltrate seen in the right middle lobe and left lingula. This may represent atelectasis, pneumonia or scarring. 3. Small amount of air in the urinary bladder. This can be seen with recent instrumentation please correlate. Infection cannot be excluded. 4. Results of this exam have been verbally communicated with provider. Shoulder xray notes: IMPRESSION: Comminuted displaced fracture involving the proximal humerus. This is of indeterminate acuity. Please correlate with patient's clinical history. This patient has been in the high 80s on room air and requiring 1 to 2 L of nasal cannula oxygen and findings of potential pneumonia and report of shortness of breath, will treat for pneumonia. As she has a questionable UTI, will cover with Levaquin to cover a potential lung and bladder infection. There is a potential for QT prolongation with her Celexa. Her QTC was 417 and as Levaquin will likely provide the best stool coverage, will proceed with Levaquin. Although unclear of the acuity of patient's humerus fracture, as patient has pain, will place in sling and refer for orthopedics. We will plan for discharge back to [facility] with prescription for Levaquin with plan for nasal cannula oxygen at needed and follow-up with orthopedics. Medical Records Medical records reviewed: Yes I reviewed the patient's medical records. Imaging Data Radiologic Study: Radiologist's impression: XR PORTABLE CHEST AP CLINICAL HISTORY: shortness of breath, r/o acute disease TECHNIQUE: 2D digital imaging was performed of the chest. One image was obtained. An AP view was obtained. COMPARISON: CR LEFT SHOULDER COMPLETE from 05/25/2013 CR XR PORTABLE CHEST AP from 05/06/2020 FINDINGS: MEDIASTINUM: Normal. HEART: Normal. PULMONARY VASCULATURE: Normal. LUNGS: No focal consolidating infiltrates. PLEURAL SPACE: No pleural effusion or pneumothorax. BONE:There is a displaced fracture through the proximal metaphysis of the right humerus. This is incompletely imaged on this examination. The age is indeterminate. OTHER FINDINGS:Normal. IMPRESSION: 1. No acute pulmonary findings. 2. Displaced proximal right humeral fracture. X-ray of the right shoulder is recommended for further evaluation. 3. Results of this exam have been verbally communicated with provider. CT CHEST PE ABD PELVIS W CLINICAL HISTORY: hypoxia, sob, abdominal pain. TECHNIQUE: Imaging Protocol: Axial CT angiography was performed with multi- slice acquisition and multi-planar and/or 3D reconstructions. CONTRAST MATERIAL: Intravenous: Omnipaque 350 Contrast volume:100 mL COMPARISON: CT CHEST WITH CONTRAST from 09/24/2013 FINDINGS: The examination is limited due to patient motion artifact. CHEST: Tracheobronchial tree: Patent where visualized. Pulmonary parenchyma: Small infiltrates are seen in the right middle lobe and the left lingula. This may represent atelectasis, scarring or pneumonia. No architectural distortion. Pulmonary Arteries: No evidence of filling defect to suggest pulmonary emboli. Mediastinum and Bernie: No dominant adenopathy or fluid collection. The esophagus is unremarkable. Visualized thyroid gland: Unremarkable. Pleura: No effusion or pneumothorax. Heart: The heart is not dilated. No coronary artery calcifications are seen. No pericardial effusion. Aorta: Thoracic aorta non-dilated. Atherosclerosis. No evidence of dissection. Bones: Within normal limits for the patient's age. There is a comminuted fracture involving the proximal humerus. It is of indeterminate age. The distal fracture is displaced medially. Soft tissues: Unremarkable. ABDOMEN: Liver: Normal density. No measurable mass. Portal, Superior Mesenteric, and Splenic Veins: Unremarkable. Gallbladder and Biliary Tract: No radiodense calculus or dilation. Pancreas: Normal density, no abnormal calcifications or inflammatory process. Spleen: Normal. Adrenals: No masses seen. Kidneys: Normal size, contour and axis. No radiodense stones or obstructive uropathy. No masses seen. There are few tiny hypodensities in the kidneys. They are too small for further characterization but likely reflect small cysts. No follow-up is recommended. Abdominal Aorta: Abdominal portion non-dilated. Atherosclerosis. Bowel: No obstruction or bowel wall thickening. No evidence of appendicitis. There are few diverticula in the colon but no evidence of acute diverticulitis. Peritoneal Cavity: No ascites, collection or mesenteric inflammatory response. No free air. Lymph Nodes: Within normal limits. Bones: Within normal limits for the patient's age. Soft Tissues: Unremarkable. PELVIS: Bladder: Symmetric distention, no gross wall thickening. There is air seen within the urinary bladder. This may reflect recent instrumentation. Please correlate clinically. Infection cannot be excluded. Reproductive Organs: Status post hysterectomy. Lymph Nodes: Within normal limits. Bones: Within normal limits. IMPRESSION: 1. No evidence pulmonary embolism, thoracic aortic dissection or aneurysm. 2. Small infiltrate seen in the right middle lobe and left lingula. This may represent atelectasis, pneumonia or scarring. 3. Small amount of air in the urinary bladder. This can be seen with recent instrumentation please correlate. Infection cannot be excluded. 4. Results of this exam have been verbally communicated with provider. XR SHOULDER RT COMPLETE 2+V CLINICAL HISTORY: right shoulder fracture noted on cxr. TECHNIQUE: 2D digital imaging was performed of the right shoulder. Four images were obtained. AP, Grashey and Y views views were obtained. COMPARISON: CR XR PORTABLE CHEST AP from 05/06/2020 FINDINGS: BONES: There is a comminuted fracture of the proximal humerus involving the head and the surgical neck. The distal fracture is displaced anteriorly. There does appear to be subluxation of the glenohumeral joint. Several of the osseous fragments have a smooth margin suggesting that this is not acute. Please correlate with the patient's clinical history. No bony destructive lesion is seen. JOINTS: The acromioclavicular joint is intact. SOFT TISSUE: Normal. IMPRESSION: Comminuted displaced fracture involving the proximal humerus. This is of indeterminate acuity. Please correlate with patient's clinical history. Lab Data Lab results reviewed: Yes I reviewed the patient's lab results. Labs: 03/05/21 10:53 Urine - Reflex from Ua Urine Culture - Pending Laboratory Tests Range/Units 03/05/21 03/05/21 03/05/21 10:40 10:44 10:44 WBC (4.4-10.8) 10^3/uL 8.08 RBC (3.93-5.22) 10^6/uL 4.51 Hgb (11.2-15.7) g/dL 14.1 Hct (36.0-46.0) % 45.1 MCV (80-95) fL 100.0 H MCH (27.0-33.0) pg 31.3 MCHC (32.0-36.0) % 31.3 L RDW (11.7-14.6) % 11.9 Plt Count (130-400) 10^3/uL 244 MPV (8.0-11.0) fL 10.1 Immature Gran % 0.2 Neutrophils % 70.1 Lymphocytes % 15.3 Monocytes % 10.9 Eosinophils % 3.1 Basophils % 0.4 Nucleated RBC % % 0 Absolute Neutrophils (1.2-6.7) 10^3/uL 5.66 Absolute Lymphocytes (1.2-3.4) 10^3/uL 1.24 Absolute Monocytes (0.1-0.8) 10^3/uL 0.88 H Absolute Eosinophils (0.0-0.7) 10^3/uL 0.25 Absolute Basophils (0.0-0.2) 10^3/uL 0.03 Sodium (136-145) mmol/L 139 Potassium (3.5-5.1) mmol/L 4.0 Chloride (98-107) mmol/L 102 Carbon Dioxide (21.0-32.0) mmol/L 35.0 H Anion Gap (3-11) mmol/L 2.0 L BUN (7-18) mg/dL 14 Creatinine (0.55-1.02) mg/dL 0.8 Estimated GFR/1.73 m2 (mL/min/1.73m2) >= 60.00 Glucose (74-106) mg/dL 104 Calcium (8.5-10.1) mg/dL 8.7 Magnesium (1.8-2.4) mg/dL 2.0 Total Bilirubin (0.2-1.0) mg/dL 0.3 AST (15-37) U/L 12 L ALT (14-59) U/L 16 Alkaline Phosphatase (46-116) U/L 71 Troponin I (<or=60) ng/L < 50 Total Protein (6.4-8.2) g/dL 6.5 Albumin (3.4-5.0) g/dL 3.1 L Lipase (73-393) U/L Urine Color (Yellow) Urine Clarity (Clear) Urine pH (5-8) Ur Specific Sterling (1.005-1.025) Urine Protein (Negative) mg/dL Urine Ketones (Negative) mg/dL Urine Blood (Negative) Urine Nitrite (Negative) Urine Bilirubin (Negative) Urine Urobilinogen (Up TO 0.2) EU/dL Ur Leukocyte Esterase (Negative) Urine RBC (0-2) HPF Urine WBC (0-5) HPF Ur Epithelial Cells (Negative) HPF Urine Crystals (Negative) HPF Urine Bacteria (Negative) HPF Urine Casts (Negative) LPF Urine Mucus (Negative) Ur Culture Indicated? Urine Glucose (Negative) mg/dL COVID-19 Source Nasal/Nares SARS-CoV-2 (PCR) (Negative) Negative Range/Units 03/05/21 03/05/21 10:44 10:53 WBC (4.4-10.8) 10^3/uL RBC (3.93-5.22) 10^6/uL Hgb (11.2-15.7) g/dL Hct (36.0-46.0) % MCV (80-95) fL MCH (27.0-33.0) pg MCHC (32.0-36.0) % RDW (11.7-14.6) % Plt Count (130-400) 10^3/uL MPV (8.0-11.0) fL Immature Gran % Neutrophils % Lymphocytes % Monocytes % Eosinophils % Basophils % Nucleated RBC % % Absolute Neutrophils (1.2-6.7) 10^3/uL Absolute Lymphocytes (1.2-3.4) 10^3/uL Absolute Monocytes (0.1-0.8) 10^3/uL Absolute Eosinophils (0.0-0.7) 10^3/uL Absolute Basophils (0.0-0.2) 10^3/uL Sodium (136-145) mmol/L Potassium (3.5-5.1) mmol/L Chloride (98-107) mmol/L Carbon Dioxide (21.0-32.0) mmol/L Anion Gap (3-11) mmol/L BUN (7-18) mg/dL Creatinine (0.55-1.02) mg/dL Estimated GFR/1.73 m2 (mL/min/1.73m2) Glucose (74-106) mg/dL Calcium (8.5-10.1) mg/dL Magnesium (1.8-2.4) mg/dL Total Bilirubin (0.2-1.0) mg/dL AST (15-37) U/L ALT (14-59) U/L Alkaline Phosphatase (46-116) U/L Troponin I (<or=60) ng/L Total Protein (6.4-8.2) g/dL Albumin (3.4-5.0) g/dL Lipase (73-393) U/L 98 Urine Color (Yellow) Yellow Urine Clarity (Clear) Cloudy Urine pH (5-8) 7.0 Ur Specific Sterling (1.005-1.025) 1.020 Urine Protein (Negative) mg/dL Negative Urine Ketones (Negative) mg/dL Negative Urine Blood (Negative) Trace-intact H Urine Nitrite (Negative) Positive H Urine Bilirubin (Negative) Negative Urine Urobilinogen (Up TO 0.2) EU/dL 0.2 Ur Leukocyte Esterase (Negative) Negative Urine RBC (0-2) HPF 0-2 Urine WBC (0-5) HPF 0-2 Ur Epithelial Cells (Negative) HPF Few Urine Crystals (Negative) HPF Negative Urine Bacteria (Negative) HPF Moderate Urine Casts (Negative) LPF Negative Urine Mucus (Negative) Negative Ur Culture Indicated? Yes Urine Glucose (Negative) mg/dL Negative COVID-19 Source SARS-CoV-2 (PCR) (Negative) ECG Data Attestation: I personally reviewed and interpreted this ECG (s) as follows: Interpretation: Rate of 85, sinus, no acute ST elevation or depression. MT 137. QTc 417. HPI General Mode of arrival: ambulatory . Date/Time Provider Initiated Documentation: 03/05/21 10:17 . Limitations to Documentation: no limitations . Information obtained by: patient . HPI Narrative: Patient is a 75-year-old female with a history of COPD, hypertension, GERD, schizophrenia, TIA presents [facility] the [facility] for report of shortness of breath and abdominal pain. EMS notes that her oxygen saturation was 88% on room air and increased to 95% on 2 L nasal cannula oxygen. She is reported to not normally be on oxygen. Patient denies any acute complaints including shortness of breath or abdominal pain. When asked any question she mainly states bastards. Related Data Home Medications Medication Instructions Recorded Confirmed alendronate 70 mg PO .WEEKLY 08/22/13 12/05/13 aspirin [Aspir-81] 81 mg PO DAILY 08/22/13 12/05/13 conjugated estrogens [Premarin] 0.625 mg PO DAILY 08/22/13 12/05/13 meloxicam 15 mg PO DAILY 08/22/13 12/05/13 multivitamin 1 tab PO DAILY 08/22/13 12/05/13 nifedipine [Adalat CC] 60 mg PO DAILY 08/22/13 12/05/13 paroxetine HCl 20 mg PO DAILY 08/22/13 12/05/13 risperidone [Risperdal] 2 mg PO HS 08/22/13 12/05/13 sodium bicarbonate 1,300 mg PO BID 08/22/13 12/05/13 calcium carbonate [Tums] 1 tab PO TID 11/06/13 12/05/13 oxycodone-acetaminophen 1 tab PO Q4H PRN PRN #60 tab 11/07/13 12/05/13 hydrocodone-acetaminophen 0.5 - 1 tab PO Q4H PRN PRN #20 tab 12/05/13 ranitidine HCl 150 mg tablet 150 mg PO BID #180 tab 12/05/18 acetaminophen [Acetaminophen Extra 500 mg PO QID PRN 05/06/20 05/06/20 Strength] citalopram [Celexa] 20 mg PO DAILY 05/06/20 05/06/20 dextromethorphan-guaifenesin 10 ml Q4H PRN PRN 05/06/20 05/06/20 ergocalciferol (vitamin D2) See Rx Instructions .ROUTE .COMPLEX 05/06/20 05/06/20 [Drisdol] ipratropium-albuterol 1 spray INHALATION Q4H WHILE AWAKE 05/06/20 05/06/20 prednisone See Rx Instructions .ROUTE .COMPLEX 05/06/20 05/06/20 risperidone [Risperdal] 0.5 mg PO TID 05/06/20 05/06/20 levofloxacin 750 mg PO DAILY 5 Days #5 tab 03/05/21 Previous Rx's Medication Instructions Recorded oxycodone-acetaminophen 1 tab PO Q4H PRN PRN #60 tab 11/07/13 hydrocodone-acetaminophen 0.5 - 1 tab PO Q4H PRN PRN #20 tab 12/05/13 ranitidine HCl 150 mg tablet 150 mg PO BID #180 tab 12/05/18 levofloxacin 750 mg PO DAILY 5 Days #5 tab 03/05/21 Allergies Allergy/AdvReac Type Severity Reaction Status Date / Time wool Allergy Unverified 05/07/20 14:38 wool Allergy Intermediate Skin Rash Uncoded 05/07/20 14:38 General Stated Complaint: SOB SARITHA: 2 Review of Systems Unobtainable due to mental status PFSH All Active Problems (Updated 03/05/21 @ 15:30 by Tiffanie Andujar DO) Pneumonia (Acute) UTI (urinary tract infection) (Acute) Fracture of proximal humerus (Acute) Schizophrenia (Chronic) COPD (chronic obstructive pulmonary disease) (Chronic) Medical History (Updated 03/05/21 @ 15:30 by Tiffanie Andujar DO) Adhesive capsulitis Dysthymic disorder Emphysema of lung History of tobacco use Hypertension Olecranon bursitis Recurrent vomiting Surgical History (Updated 05/07/20 @ 14:38 by Suze Phillips) History of appendectomy History of total abdominal hysterectomy Social History (System 05/07/20 @ 14:38 by Suze Phillips) Smoking/Tobacco Use Status: Former Tobacco Use tobacco type: cigarettes Smoking risk assessment performed?: Yes Alcohol Intake: former Drug use: Never Additional Social history: Sister, Bridget Joseph, he is her guardian. [id number] Exam Const General: cooperative (but agitated at time stating bastards frequently when asking questions) and no acute distress Nutritional Appearance: average body habitus Orientation: alert and awake HENMT Head: normal to inspection Face and sinus: normal facial exam Eyes General: appearance normal, both eyes and all related structures EOM: EOM intact bilaterally Neck Neck: normal visual inspection and No submandibular swelling Lymphatic: no lymphadenopathy noted Chest Chest: normal inspection of the chest and no tenderness Resp Effort & Inspection: normal respiratory effort and able to speak in complete sentences Auscultation: clear to auscultation bilaterally Cardio Rate: regular rate Rhythm: regular rhythm GI Inspection: normal to inspection Palpation: soft, not firm, not rigid and nontender Auscultation: normal bowel sounds Back/Spine/Pelvis Thoracic/Lumbar Spine: thoracic and lumbar spine normal to inspection Skin General skin exam: no rashes or lesions noted Neuro General: patient alert and patient awake Speech: speech normal Motor: muscle tone normal throughout Sensory Exam: no sensory deficits noted Extrem General: normal to inspection, full ROM, capillary refill normal, no calf tenderness bilaterally and no edema Psych Appearance: grossly normal Mental Status: mental status grossly normal Speech and Movement: speech and movement normal Affect: normal affect Course Vital Signs Vital signs: Vital Signs Temperature 98.8 F 03/05/21 10:06 Pulse 84 03/05/21 10:06 Respiratory Rate 18 03/05/21 10:06 Blood Pressure 109/56 L 03/05/21 10:06 Pulse Oximetry 97 03/05/21 10:06 Temperature 98.8 F 03/05/21 10:06 Temperature Source Skin 03/05/21 10:06 Pulse 84 03/05/21 10:06 Respiratory Rate 18 03/05/21 10:14 Respiratory Effort 03/05/21 10:10 Respiratory Pattern Irregular 03/05/21 10:14 Blood Pressure 109/56 L 03/05/21 10:06 Blood Pressure Position Right Lateral 03/05/21 10:06 Pulse Oximetry 97 03/05/21 10:06 Oxygen Delivery Method Nasal Cannula 03/05/21 10:06 Oxygen Flow Rate 4 03/05/21 10:06 Pain Level 0 03/05/21 10:06
--- NOTE | 2021-03-05 10:30 | RT.EKG_ITS ---
APPROVED REPORT Exam: Resting ECG Reason for Exam: shortness of breath Patient Location: E HR:85 bpm ECG Measurements Heart Rate 85 AXIS WV 177 P 71 QRSd 81 QRS 77 QT 351 T 56 QTc 417 Conclusion Sinus rhythm...normal P axis, V-rate 60- 99. Sinus. No STEMI. I have reviewed and interpreted ECG and agree with software generated interpretation.
[2021-03-05 10:49] LABS: Source Nasal/Nares
[2021-03-05 10:50] LABS: Abs Immature Grans 0.02 10^3/uL (0.0-0.06); Absolute Basophil Count 0.03 10^3/uL (0.0-0.2); Absolute Eosinophil Count 0.25 10^3/uL (0.0-0.7); Absolute Lymphocyte Count 1.24 10^3/uL (1.2-3.4); Absolute Monocyte Count 0.88 10^3/uL (0.1-0.8); Absolute Neutrophil Count 5.66 10^3/uL (1.2-6.7); Basophils % 0.4; Eosinophils % 3.1; HCT 45.1 % (36.0-46.0); HGB 14.1 g/dL (11.2-15.7); Immature Grans % 0.2; Lymphocytes % 15.3; MCH 31.3 pg (27.0-33.0); MCHC 31.3 % (32.0-36.0); MPV 10.1 fL (8.0-11.0); Monocytes % 10.9; Neutrophils % 70.1; Nucleated RBC 0 %; Platelet Count 244 10^3/uL (130-400); RBC 4.51 10^6/uL (3.93-5.22); RDW 11.9 % (11.7-14.6); RDW-SD 44.1 fL; WBC 8.08 10^3/uL (4.4-10.8)
[2021-03-05] MEDS: Normal Saline 250 ML IV (10:55)
[2021-03-05] MEDS: ACETAMINOPHEN 1,000 MG/100 ML BTL 400 MG IVPB (11:00)
[2021-03-05 11:09] LABS: Bilirubin Negative (Negative); Blood Trace-intact (Negative); Clarity Cloudy (Clear); Glucose Negative (Negative); Ketones Negative (Negative); Leukocyte Esterase Negative (Negative); Nitrite Positive (Negative); Urobilinogen 0.2 EU/dL (Up TO 0.2)
[2021-03-05 11:11] LABS: ALT 16 U/L (14-59); AST 12 U/L (15-37); Albumin 3.1 g/dL (3.4-5.0); Alkaline Phosphatase 71 U/L (46-116); BUN 14 mg/dL (7-18); Bilirubin, Total 0.3 mg/dL (0.2-1.0); CREATININE 0.8 mg/dL (0.55-1.02); Calcium 8.7 mg/dL (8.5-10.1); Chloride 102 mmol/L (98-107); Glucose 104 mg/dL (74-106); Sodium 139 mmol/L (136-145); Total Protein 6.5 g/dL (6.4-8.2); Troponin I < 50 ng/L (<or=60)
[2021-03-05 11:12] LABS: Bacteria Moderate HPF (Negative); C & S Indicated? Yes; Casts Negative LPF (Negative); Crystals Negative HPF (Negative); Epithelial Cells Few HPF (Negative); Mucus Negative (Negative); RBC 0-2 HPF (0-2); WBC 0-2 HPF (0-5)
[2021-03-05 11:19] LABS: Lipase 98 U/L (73-393)
[2021-03-05 11:30] LABS: COVID-19 PCR Negative (Negative)
--- NOTE | 2021-03-05 11:30 | DI.RAD_ITS ---
Exam(s) XR SHOULDER RT COMPLETE 2+V EXAM: XR SHOULDER RT COMPLETE 2+V CLINICAL HISTORY: right shoulder fracture noted on cxr. TECHNIQUE: 2D digital imaging was performed of the right shoulder. Four images were obtained. AP, Grashey and Y views views were obtained. COMPARISON: CR XR PORTABLE CHEST AP from 05/06/2020 FINDINGS: BONES: There is a comminuted fracture of the proximal humerus involving the head and the surgical nec k. The distal fracture is displaced anteriorly. There does appear to be subluxation of the glenohum eral joint. Several of the osseous fragments have a smooth margin suggesting that this is not acute. Please correlate with the patient's clinical history. No bony destructive lesion is seen. JOINTS: The acromioclavicular joint is intact. SOFT TISSUE: Normal. IMPRESSION: Comminuted displaced fracture involving the proximal humerus. This is of indeterminate acuity. Plea se correlate with patient's clinical history. DATA REPOSITORY: RADIATION DOSE DELIVERED:
--- NOTE | 2021-03-05 11:45 | DI.CT_ITS ---
Exam(s) CT CHEST PE ABD PELVIS W EXAM: CT CHEST PE ABD PELVIS W CLINICAL HISTORY: hypoxia, sob, abdominal pain. TECHNIQUE: Imaging Protocol: Axial CT angiography was performed with multi-slice acquisition and mu lti-planar and/or 3D reconstructions. CONTRAST MATERIAL: Intravenous: Omnipaque 350 Contrast volume:100 mL COMPARISON: CT CHEST WITH CONTRAST from 09/24/2013 FINDINGS: The examination is limited due to patient motion artifact. CHEST: Tracheobronchial tree: Patent where visualized. Pulmonary parenchyma: Small infiltrates are seen in the right middle lobe and the left lingula. This may represent atelectasis, scarring or pneumonia. No architectural distortion. Pulmonary Arteries: No evidence of filling defect to suggest pulmonary emboli. Mediastinum and Bernie: No dominant adenopathy or fluid collection. The esophagus is unremarkable. Visualized thyroid gland: Unremarkable. Pleura: No effusion or pneumothorax. Heart: The heart is not dilated. No coronary artery calcifications are seen. No pericardial effusion. Aorta: Thoracic aorta non-dilated. Atherosclerosis. No evidence of dissection. Bones: Within normal limits for the patient's age. There is a comminuted fracture involving the proxi mal humerus. It is of indeterminate age. The distal fracture is displaced medially. Soft tissues: Unremarkable. ABDOMEN: Liver: Normal density. No measurable mass. Portal, Superior Mesenteric, and Splenic Veins: Unremarkable. Gallbladder and Biliary Tract: No radiodense calculus or dilation. Pancreas: Normal density, no abnormal calcifications or inflammatory process. Spleen: Normal. Adrenals: No masses seen. Kidneys: Normal size, contour and axis. No radiodense stones or obstructive uropathy. No masses seen. There are few tiny hypodensities in the kidneys. They are too small for further characterization bu t likely reflect small cysts. No follow-up is recommended. Abdominal Aorta: Abdominal portion non-dilated. Atherosclerosis. Bowel: No obstruction or bowel wall thickening. No evidence of appendicitis. There are few diverticu la in the colon but no evidence of acute diverticulitis. Peritoneal Cavity: No ascites, collection or mesenteric inflammatory response. No free air. Lymph Nodes: Within normal limits. Bones: Within normal limits for the patient's age. Soft Tissues: Unremarkable. PELVIS: Bladder: Symmetric distention, no gross wall thickening. There is air seen within the urinary bladder . This may reflect recent instrumentation. Please correlate clinically. Infection cannot be exclud ed. Reproductive Organs: Status post hysterectomy. Lymph Nodes: Within normal limits. Bones: Within normal limits. IMPRESSION: 1. No evidence pulmonary embolism, thoracic aortic dissection or aneurysm. 2. Small infiltrate seen in the right middle lobe and left lingula. This may represent atelectasis, pneumonia or scarring. 3. Small amount of air in the urinary bladder. This can be seen with recent instrumentation please c orrelate. Infection cannot be excluded. 4. Results of this exam have been verbally communicated with provider. RADIATION DOSE DELIVERED: 1,258.59mGy.cm Total DLP DATA REPOSITORY: All CT scans at this facility are submitted to the National Radiology Data Registry (NRDR) Dose Index Registry (DIR) with the [employer] (ACR). RADIATION OPTIMIZATION: All CT scans at this facility use at least one of these dose optimization te chniques: automated exposure control; mA and/or kV adjustment per patient size (includes targeted exa ms where dose is matched to clinical indication); or iterative reconstruction.
[2021-03-05] MEDS: Omnipaque 350 MG/ML 100 ML BTL IJ (12:06)
[2021-03-05] MEDS: levoFLOXacin 500 MG, levoFLOXacin 250 MG 750 MG PO (14:03)
--- NOTE | 2021-03-07 09:25 | NUR.NOTE ---
At the request of Dr. Boyle I faxed the urine culture result to the [facility] for follow up. I called and spoke with the person answering the phone so that the result will be given to the provider. Norma Ontiveros Nursing Note:
== END 2021-03-05 16:17 | disposition home or self-care (01) ==
PROVIDERS: Emergency Provider Physician Assistant; PCP Family Medicine
DX: J18.9 Pneumonia, unspecified organism (principal); N39.0 Urinary tract infection, site not specified; B96.20 Unspecified Escherichia coli [E. coli] as the cause of diseases classified elsewhere; S42.291A Other displaced fracture of upper end of right humerus, initial encounter for closed fracture; X58.XXXA Exposure to other specified factors, initial encounter; R10.9 Unspecified abdominal pain; R09.02 Hypoxemia
CPT/HCPCS: 36415; 71275; 74177; 80053; 83690; 87077; 87635; 93005; 96361; 96374; 99285; 71045; 73030; 81003; 81015; 83735; 84484; 85025; 87086; 87186; 93010; 99284; J0131; J3490

== ENCOUNTER 2021-05-12 16:35 | Outpatient (REF) | payer MEDICARE, MEDICAID, SELFPAY ==
[2021-05-12 17:13] LABS: Anion Gap 5.1 mmol/L (3-11); BUN 15 mg/dL (7-18); CO2 30.9 mmol/L (21.0-32.0); CREATININE 0.8 mg/dL (0.55-1.02); Calcium 8.9 mg/dL (8.5-10.1); Chloride 105 mmol/L (98-107); Glucose 117 mg/dL (74-106); Potassium 4.2 mmol/L (3.5-5.1); Sodium 141 mmol/L (136-145)
[2021-05-14 00:53] LABS: Vitamin D 25 Total 29.1 ng/mL (30-100)
== END 2021-05-12 16:36 | disposition home or self-care (01) ==
LOC: LBN 16:35
PROVIDERS: PCP Family Medicine; Visit Provider Nurse Practitioner Gerontology
DX: E55.9 Vitamin D deficiency, unspecified (principal); F34.1 Dysthymic disorder; F20.5 Residual schizophrenia; J44.9 Chronic obstructive pulmonary disease, unspecified
CPT/HCPCS: 80048; 82306

== ENCOUNTER 2022-10-23 18:40 | Inpatient (IN) | payer MEDICARE, MEDICAID, SELFPAY ==
[2022-10-23] VITALS (30 sets, daily range): BP systolic 95–190; BP diastolic 54–94; PULSE 84–132; RESP 17–28; TEMP 36.9–38.2; O2SAT 84–97
--- NOTE | 2022-10-23 18:45 | RT.EKG_ITS ---
APPROVED REPORT Exam: Resting ECG Reason for Exam: rapid heart rate Patient Location: E HR:126 bpm ECG Measurements Heart Rate 126 AXIS GA 176 P 83 QRSd 80 QRS 68 QT 294 T 41 QTc 426 Conclusion Sinus tachycardia...rate> 99 Narrow complex sinus tachycardia rate of 126. Normal axis. Intervals within normal limits. No ST s egment abnormalities. T wave inversion in V2 slightly more pronounced compared to prior. Prior date d last year. No acute injury pattern.
--- NOTE | 2022-10-23 19:00 | DI.CT_ITS ---
Exam(s) CT CHEST/ABD/PEL W EXAM: CT CHEST/ABD/PEL W CLINICAL HISTORY: fever, abdominal pain, fall TECHNIQUE: Imaging Protocol: Axial computed tomography images with coronal and sagittal reformatted images were created and reviewed CONTRAST MATERIAL: Intravenous: Omnipaque 350 contrast volume:100 mL Oral: No COMPARISON: CT CT CHEST PE ABD PELVIS W from 03/05/2021 CR XR SHOULDER RT COMPLETE 2+V from 03/05/2021 FINDINGS: The examination is limited due to patient motion artifact. CHEST: Tracheobronchial tree: Patent where visualized. Pulmonary parenchyma: No consolidation or dominant measurable mass. Mild scarring or atelectasis is s een in the lungs. Visualized thyroid gland: Unremarkable. Mediastinum and Bernie: No dominant adenopathy or fluid collection. The esophagus is fluid-filled. Thi s raises the risk of aspiration. Pleura: No effusion or pneumothorax. Heart: The heart is not dilated. Coronary artery calcification is present. No pericardial effusion. Pulmonary arteries: Pulmonary arteries are inadequately opacified for evaluation of pulmonary emboli. Aorta: Thoracic aorta non-dilated. Atherosclerosis is present. Lymph nodes: Within normal limits. Soft tissues: Unremarkable. Bones:Within normal limits for the patient's age. Old proximal right humeral fracture which is stabl e. Subacute right 2nd rib fracture. Old healed right rib fracture deformities. ABDOMEN: Liver: Normal density. No measurable mass. Portal, Superior Mesenteric, and Splenic Veins: Unremarkable. Gallbladder and Biliary Tract: No radiodense calculus or dilation. Pancreas: Normal density, no abnormal calcifications or inflammatory process. Spleen: Normal. Adrenals: No masses seen. Kidneys: Normal size, contour and axis. No radiodense stones or obstructive uropathy. No masses seen. Abdominal Aorta: Abdominal portion non-dilated. Atherosclerosis. Bowel: There is diverticulosis of the colon but no evidence of acute diverticulitis. There is no fabricio dence of bowel obstruction or bowel wall thickening. No evidence of acute appendicitis. Peritoneal Cavity: No ascites, collection or mesenteric inflammatory response. No free air. Lymph Nodes: Within normal limits. Bones: Within normal limits for the patient's age. Soft Tissues: There is a small fat containing umbilical hernia. PELVIS: Bladder: There is diffuse thickening of the wall of the urinary bladder. Reproductive Organs: Status post hysterectomy. Lymph Nodes: Within normal limits. Bones: Within normal limits. IMPRESSION: 1. No acute pulmonary process. 2. Old nonunited for proximal right humeral fracture. 3. Subacute and old right rib fractures. 4. No acute abdominal pelvic process. RADIATION DOSE DELIVERED: 1,014.68mGy.cm Total DLP DATA REPOSITORY: All CT scans at this facility are submitted to the National Radiology Data Registry (NRDR) Dose Index Registry (DIR) with the [employer] (ACR). RADIATION OPTIMIZATION: All CT scans at this facility use at least one of these dose optimization te chniques: automated exposure control; mA and/or kV adjustment per patient size (includes targeted exa ms where dose is matched to clinical indication); or iterative reconstruction.
--- NOTE | 2022-10-23 19:00 | DI.CT_ITS ---
Exam(s) CT HEAD WO EXAM: CT HEAD WO CLINICAL HISTORY: fall. TECHNIQUE: Imaging Protocol: Axial computed tomography images with coronal and sagittal reformatted images were created and reviewed COMPARISON: No exams were available for comparison FINDINGS: Ventricles and Extra axial spaces: Normal in size and morphology for the patient's age. Hemorrhage: None. Cerebral parenchyma: There is no evidence of an acute territorial infarct. There are areas of decrea sed attenuation in the white matter most consistent with small vessel ischemic disease. Midline shift: None. Brainstem/Cerebellum: Normal. Calvarium: Normal. Visualized Paranasal sinuses/Mastoids: Clear. Soft Tissues: Unremarkable. IMPRESSION: No acute intracranial process. RADIATION DOSE DELIVERED: 712.88mGy.cm Total DLP DATA REPOSITORY: All CT scans at this facility are submitted to the National Radiology Data Registry (NRDR) Dose Index Registry (DIR) with the [employer] (ACR). RADIATION OPTIMIZATION: All CT scans at this facility use at least one of these dose optimization te chniques: automated exposure control; mA and/or kV adjustment per patient size (includes targeted exa ms where dose is matched to clinical indication); or iterative reconstruction.
[2022-10-23] MEDS: Albuterol/Ipratropium 3 ML UPD VIAL UPD (19:27)
[2022-10-23] MEDS: ACETAMINOPHEN 1,000 MG/100 ML BTL 400 MG IVPB (19:27)
[2022-10-23] MEDS: methylPREDNISolone SUCC 125 MG VIAL 80 MG IVP (19:27)
[2022-10-23 19:28] LABS: BE (Venous) 9 mmol/L (-2-3); HCO3 (Venous) 35 mmol/L (23-28); O2 Sat (Venous) 69 %; TCO2 (Venous) 32 mmol/L (24-29); pH (Venous) 7.32 (7.31-7.41); pO2 (Venous) 40 mmHg
[2022-10-23 19:29] LABS: Abs Immature Grans 0.09 10^3/uL (0.0-0.06); Absolute Basophil Count 0.05 10^3/uL (0.0-0.2); Absolute Lymphocyte Count 1.46 10^3/uL (1.2-3.4); Absolute Neutrophil Count 9.58 10^3/uL (1.2-6.7); Basophils % 0.4; Eosinophils % 1.2; HCT 46.9 % (36.0-46.0); HGB 14.5 g/dL (11.2-15.7); Immature Grans % 0.7; Lymphocytes % 12.1; MCH 30.8 pg (27.0-33.0); MCHC 30.9 % (32.0-36.0); MCV 100 fL (80-95); MPV 10.8 fL (8.0-11.0); Monocytes % 6.4; Neutrophils % 79.2; Platelet Count 281 10^3/uL (130-400); RBC 4.71 10^6/uL (3.93-5.22); RDW 12.3 % (11.7-14.6); RDW-SD 45.4 fL
[2022-10-23 19:30] LABS: Absolute Eosinophil Count 0.15 10^3/uL (0.0-0.7); Absolute Monocyte Count 0.77 10^3/uL (0.1-0.8)
[2022-10-23 19:33] LABS: pCO2 (Venous) 68 mmHg (41-51)
[2022-10-23 19:34] LABS: Lactate 1.1 mmol/L (0.6-1.4)
[2022-10-23 19:52] LABS: ALT 11 U/L (14-59); AST 13 U/L (15-37); Albumin 3.4 g/dL (3.4-5.0); Alkaline Phosphatase 75 U/L (46-116); Anion Gap 5.8 mmol/L (3-11); BUN 19 mg/dL (7-18); Bilirubin, Total 0.3 mg/dL (0.2-1.0); CO2 33.2 mmol/L (21.0-32.0); CREATININE 0.8 mg/dL (0.55-1.02); Calcium 8.6 mg/dL (8.5-10.1); Chloride 99 mmol/L (98-107); Estimated GFR 76.31 (mL/min/1.73m2); Glucose 127 mg/dL (74-106); NT-proBNP 192 pg/mL (<300); Potassium 4.1 mmol/L (3.5-5.1); Sodium 138 mmol/L (136-145); Total Protein 7.2 g/dL (6.4-8.2); Troponin I < 50 ng/L (<or=60)
[2022-10-23] MEDS: Normal Saline 250 ML 500 ML IV (20:06)
[2022-10-23 20:24] LABS: COVID-19 PCR Negative (Negative); Influenza A PCR Negative (Negative); Influenza B PCR Negative (Negative); RSV PCR Negative (Negative)
[2022-10-23 20:25] LABS: Source Nasopharynx
[2022-10-23] MEDS: Albuterol 2.5 MG/3 ML INH SOLN VIAL 5 MG UPD (20:26)
[2022-10-23] MEDS: DOXYCYCLINE 100 MG in Normal Saline 100 ML IVPB (21:16)
[2022-10-23] MEDS: cefTRIAXone 2 GM/50 ML BAG IVPB (21:16)
--- NOTE | 2022-10-23 21:21 | W.ED.GENAD ---
Discharge Plan Disposition Patient Disposition: Admit to [facility] Condition: Serious Discharge Details Clinical Impression: Acute and chronic respiratory failure with hypercapnia, COPD (chronic obstructive pulmonary disease), Schizophrenia Admit Date/Time: 10/24/22 05:37 Admit Provider: Rangel Garza Attending Provider: Rangel Garza Primary Care Provider: Divya Beverly ED Provider: Yarely Bills Discharge Data Discharge Date/Time-TO BE ENTERED AT DEPARTURE: 10/23/22 23:02 Medical Decision Making This 77-year-old female with history of paranoid schizophrenia presents with report of hypoxia, alteration in mental status, fever At time of assessment, she appears quite ill, she is hypoxic in the 70s on 4 L nasal cannula, she was transition to a mask at 3 L and given 2 DuoNebs and her respiratory distress has improved slightly, she is speaking in complete sentences She is alert and oriented at time of my assessment, did do CT chest abdomen and pelvis and head, these do not show evidence of significant acute abnormality I suspect patient's fever and symptoms are respiratory in nature, will treat for pneumonia empirically with ceftriaxone and doxycycline, IV fluid hydration, no clear evidence of volume overload No evidence of fracture COVID test negative Received steroids and fluids and on 2 L of oxygen for acute respiratory failure IV antibiotics, CT chest abdomen pelvis, head, results interpreted from radiology when available Case discussed with Dr. Adrian Gutierres who will admit patient to his service, patient is DNR/DNI status, I did discuss this with patient's sister who does confirm that patient is DNR/DNI but would like antibiotics and basic interventions as requested by patient Abdomen note, patient is hypercapnic, 68 on VBG, pH within normal limits, patient does appear to be at her baseline and does not appear to be encephalopathic We will keep oxygen at the lowest level as patient is adamantly refusing BiPAP at this time, Alert, oriented, paranoia, lungs with wheezing, tachypnea, retractions, no abdominal palm tenderness with palpation, no cervical spine tenderness with palpation, cranial nerves II through XII intact, GCS 15, strength and sensation intact distally, abrasion to right knee and elbow, nothing suturable on exam HPI General Date/Time Provider Initiated Documentation: 10/23/22 18:49. HPI Narrative: This 77-year-old female presents in acute respiratory distress with fever and hypoxia. She is unable to give additional history at time of my assessment, the [facility] state that she is not oxygen dependent. She had COVID test that was negative at the [facility]. Temp was 100.6 by EMS. History of COPD, takes nebs at the [facility] where she resides. Denies any vomiting or nausea. Denies any diarrhea. Related Data Home Medications Medication Instructions Recorded Confirmed alendronate 70 mg tablet 70 mg PO .WEEKLY 08/22/13 09/03/21 aspirin 81 mg tablet,delayed 81 mg PO DAILY 08/22/13 09/03/21 release (Aspir-) conjugated estrogens 0.625 mg 0.625 mg PO DAILY 08/22/13 09/03/21 tablet (Premarin) meloxicam 15 mg tablet 15 mg PO DAILY 08/22/13 09/03/21 multivitamin 1 tab PO DAILY 08/22/13 09/03/21 nifedipine 60 mg tablet,extended 60 mg PO DAILY 08/22/13 09/03/21 release (Adalat CC) paroxetine HCl 20 mg tablet 20 mg PO DAILY 08/22/13 09/03/21 risperidone 2 mg tablet (Risperdal) 2 mg PO HS 08/22/13 09/03/21 sodium bicarbonate 650 mg tablet 1,300 mg PO BID 08/22/13 09/03/21 calcium carbonate 200 mg calcium 1 tab PO TID 11/06/13 09/03/21 (500 mg) chewable tablet (Tums) oxycodone-acetaminophen 5 mg-325 1 tab PO Q4H PRN PRN Pain #60 tabs 11/07/13 09/03/21 mg tablet hydrocodone 5 mg-acetaminophen 325 0.5 - 1 tab PO Q4H PRN PRN Pain 12/05/13 09/03/21 mg tablet #20 tabs ranitidine HCl 150 mg tablet 150 mg PO BID #180 tabs 12/05/18 09/03/21 acetaminophen 500 mg tablet 500 mg PO TID 05/06/20 10/23/22 (Acetaminophen Extra Strength) citalopram 20 mg tablet (Celexa) 15 mg PO DAILY 05/06/20 10/23/22 dextromethorphan-guaifenesin 10 10 ml PO Q4H PRN PRN Cough 03/09/21 08/26/23 mg-100 mg/5 mL oral liquid ergocalciferol (vitamin D2) 1,250 See Rx Instructions .Route .COMPLEX 05/06/20 10/23/22 mcg (50,000 unit) capsule (Drisdol) ipratropium 18 mcg-albuterol 103 1 spray inhalation Q4H WHILE AWAKE 05/06/20 10/23/22 mcg/actuation aerosol inhaler prednisone 10 mg tablet See Rx Instructions .Route .COMPLEX 05/06/20 09/03/21 risperidone 0.5 mg tablet 0.5 mg PO BID 05/06/20 10/23/22 (Risperdal) albuterol 90 mcg/actuation aerosol 90 mcg inhalation Q4H PRN 10/23/22 10/23/22 inhaler omeprazole 20 mg capsule,delayed 20 mg PO DAILY 10/23/22 10/23/22 release tramadol 100 mg tablet 100 mg PO BID 10/23/22 10/23/22 Previous Rx's Medication Instructions Recorded oxycodone-acetaminophen 5 mg-325 1 tab PO Q4H PRN PRN Pain #60 tabs 11/07/13 mg tablet hydrocodone 5 mg-acetaminophen 325 0.5 - 1 tab PO Q4H PRN PRN Pain 12/05/13 mg tablet #20 tabs ranitidine HCl 150 mg tablet 150 mg PO BID #180 tabs 12/05/18 Allergies Allergy/AdvReac Type Severity Reaction Status Date / Time wool Allergy Intermediate Skin Rash Uncoded 10/23/22 18:53 General Stated Complaint: [id number] SARITHA: 2 PFSH All Active Problems (Updated 10/26/22 @ 08:53 by BARON Machado) Gram-positive bacteremia (Acute) Right shoulder pain (Acute) Constipation (Acute) Palliative care patient (Acute) Fall (Acute) Acute and chronic respiratory failure with hypercapnia (Acute) Onychomycosis (Acute) Schizophrenia (Chronic) COPD (chronic obstructive pulmonary disease) (Chronic) Medical History Adhesive capsulitis Age related osteoporosis Dysthymic disorder Emphysema of lung History of tobacco use Hypertension Olecranon bursitis Recurrent vomiting Surgical History History of appendectomy History of total abdominal hysterectomy Social History (Reviewed 10/24/22 @ 05:42 by Rangel Lobo Smoking/Tobacco Use Status: Former Tobacco Use tobacco type: cigarettes Smoking risk assessment performed?: Yes Alcohol Intake: former Drug use: Never Housing: alf Additional Social history: Sister, Bridget Joseph, he is her guardian. [id number] Course Vital Signs Vital signs: Vital Signs Temperature 38.2 C H 10/23/22 18:32 Pulse 132 H 10/23/22 18:32 Respiratory Rate 27 H 10/23/22 18:32 Blood Pressure 158/89 H 10/23/22 18:32 Pulse Oximetry 91 L 10/23/22 18:32 Temperature 38.2 C H 10/23/22 18:32 Temperature Source Oral 10/23/22 18:32 Pulse 128 H 10/23/22 20:45 Pulse 126 H 10/23/22 20:41 Respiratory Rate 23 10/23/22 20:41 Respiratory Effort Short of Breath 10/23/22 19:04 Respiratory Depth Deep 10/23/22 19:04 Respiratory Pattern Tachypnea 10/23/22 19:04 Blood Pressure 103/59 L 10/23/22 20:45 Blood Pressure Mean 68 10/23/22 20:45 Pulse Oximetry 92 10/23/22 20:45 Respiratory End-tidal CO2 12 10/23/22 20:02 Oxygen Delivery Method Nasal Cannula 10/23/22 19:10 Oxygen Flow Rate 3 10/23/22 19:10 Pain Level 7 10/23/22 18:32 Comment pt states 10/23/22 18:32 Lab/Test Results Lab/Test Results: 10/23/22 19:36 Blood Blood Culture - Pending 10/23/22 19:30 Blood Blood Culture - Pending Laboratory Tests Range/Units 10/23/22 10/23/22 10/23/22 19:25 19:25 19:25 WBC (4.4-10.8) 10^3/uL 12.10 H RBC (3.93-5.22) 10^6/uL 4.71 Hgb (11.2-15.7) g/dL 14.5 Hct (36.0-46.0) % 46.9 H MCV (80-95) fL 100 H MCH (27.0-33.0) pg 30.8 MCHC (32.0-36.0) % 30.9 L RDW (11.7-14.6) % 12.3 Plt Count (130-400) 10^3/uL 281 MPV (8.0-11.0) fL 10.8 Immature Gran % 0.7 Neutrophils % 79.2 Lymphocytes % 12.1 Monocytes % 6.4 Eosinophils % 1.2 Basophils % 0.4 Nucleated RBC % (0.0-0.3) % 0.0 Absolute Neutrophils (1.2-6.7) 10^3/uL 9.58 H Absolute Lymphocytes (1.2-3.4) 10^3/uL 1.46 Absolute Monocytes (0.1-0.8) 10^3/uL 0.77 Absolute Eosinophils (0.0-0.7) 10^3/uL 0.15 Absolute Basophils (0.0-0.2) 10^3/uL 0.05 VBG pH (7.31-7.41) VBG pCO2 (41-51) mmHg VBG pO2 mmHg VBG HCO3 (23-28) mmol/L VBG Total CO2 (24-29) mmol/L VBG O2 Saturation % VBG Base Excess (-2-3) mmol/L VBG Lactate (0.6-1.4) mmol/L 1.1 Sodium (136-145) mmol/L 138 Potassium (3.5-5.1) mmol/L 4.1 Chloride (98-107) mmol/L 99 Carbon Dioxide (21.0-32.0) mmol/L 33.2 H Anion Gap (3-11) mmol/L 5.8 BUN (7-18) mg/dL 19 H Creatinine (0.55-1.02) mg/dL 0.8 Est GFR (CKD-EPI 2020) (mL/min/1.73m2) 76.31 Glucose (74-106) mg/dL 127 H Calcium (8.5-10.1) mg/dL 8.6 Magnesium (1.8-2.4) mg/dL 2.0 Total Bilirubin (0.2-1.0) mg/dL 0.3 AST (15-37) U/L 13 L ALT (14-59) U/L 11 L Alkaline Phosphatase (46-116) U/L 75 Troponin I (<or=60) ng/L < 50 NT-Pro-B Natriuret Pep (<300) pg/mL 192 Total Protein (6.4-8.2) g/dL 7.2 Albumin (3.4-5.0) g/dL 3.4 COVID-19 Source SARS-CoV-2 (PCR) (Negative) Influenza Type A (PCR) (Negative) Influenza Type B (PCR) (Negative) RSV (PCR) (Negative) Range/Units 10/23/22 10/23/22 19:25 19:47 WBC (4.4-10.8) 10^3/uL RBC (3.93-5.22) 10^6/uL Hgb (11.2-15.7) g/dL Hct (36.0-46.0) % MCV (80-95) fL MCH (27.0-33.0) pg MCHC (32.0-36.0) % RDW (11.7-14.6) % Plt Count (130-400) 10^3/uL MPV (8.0-11.0) fL Immature Gran % Neutrophils % Lymphocytes % Monocytes % Eosinophils % Basophils % Nucleated RBC % (0.0-0.3) % Absolute Neutrophils (1.2-6.7) 10^3/uL Absolute Lymphocytes (1.2-3.4) 10^3/uL Absolute Monocytes (0.1-0.8) 10^3/uL Absolute Eosinophils (0.0-0.7) 10^3/uL Absolute Basophils (0.0-0.2) 10^3/uL VBG pH (7.31-7.41) 7.32 VBG pCO2 (41-51) mmHg 68 H* VBG pO2 mmHg 40 VBG HCO3 (23-28) mmol/L 35 H VBG Total CO2 (24-29) mmol/L 32 H VBG O2 Saturation % 69 VBG Base Excess (-2-3) mmol/L 9 H VBG Lactate (0.6-1.4) mmol/L Sodium (136-145) mmol/L Potassium (3.5-5.1) mmol/L Chloride (98-107) mmol/L Carbon Dioxide (21.0-32.0) mmol/L Anion Gap (3-11) mmol/L BUN (7-18) mg/dL Creatinine (0.55-1.02) mg/dL Est GFR (CKD-EPI 2020) (mL/min/1.73m2) Glucose (74-106) mg/dL Calcium (8.5-10.1) mg/dL Magnesium (1.8-2.4) mg/dL Total Bilirubin (0.2-1.0) mg/dL AST (15-37) U/L ALT (14-59) U/L Alkaline Phosphatase (46-116) U/L Troponin I (<or=60) ng/L NT-Pro-B Natriuret Pep (<300) pg/mL Total Protein (6.4-8.2) g/dL Albumin (3.4-5.0) g/dL COVID-19 Source Nasopharynx SARS-CoV-2 (PCR) (Negative) Negative Influenza Type A (PCR) (Negative) Negative Influenza Type B (PCR) (Negative) Negative RSV (PCR) (Negative) Negative Critical Care Time Critical Care Time Attestation: Approximately 45 minutes of critical care time secondary to acute respiratory failure and oxygen supplementation, sepsis with IV antibiotics, telemetry monitoring, multiple lines placed, CT imaging for fall, traumatic event, and ultimately admission to the hospital for further evaluation, observation, monitoring
[2022-10-23] MEDS: Normal Saline - Diluent 50 ML VIAL IV (21:23)
[2022-10-23] MEDS: Omnipaque 350 MG/ML 100 ML BTL IJ (21:23)
--- NOTE | 2022-10-23 21:41 | DI.VRAD_ITS ---
PROCEDURE INFORMATION: Exam: CT Head Without Contrast Exam date and time: 10/23/2022 8:58 PM Age: 76 years old Clinical indication: Injury or trauma; Fall; Blunt trauma (contusions or hematomas); Consciousness not specified TECHNIQUE: Imaging protocol: Computed tomography of the head without contrast. COMPARISON: No relevant prior studies available. FINDINGS: Brain: Age-related involutional changes and chronic microvascular ischemic disease. No evidence for acute transcortical infarct. No mass effect or midline shift. No extra-axial collection. No acute intracranial hemorrhage. Basal cisterns are patent. Cerebral ventricles: No ventriculomegaly. Paranasal sinuses: Visualized sinuses are unremarkable. No fluid levels. Mastoid air cells: Visualized mastoid air cells are well aerated. Bones/joints: Unremarkable. No acute fracture. Soft tissues: Unremarkable. IMPRESSION: No evidence for acute transcortical infarct, acute intracranial hemorrhage, or mass effect. Dictated and Authenticated by: Rogerio Orosco MD. Ordering:MALLORY Pritchett MD
--- NOTE | 2022-10-23 21:55 | DI.VRAD_ITS ---
PROCEDURE INFORMATION: Exam: CT Chest With Contrast; Diagnostic Exam date and time: 10/23/2022 9:01 PM Age: 76 years old Clinical indication: Pain and injury; Blunt trauma; Fever / fall TECHNIQUE: Imaging protocol: Diagnostic computed tomography of the chest with contrast. Contrast material: OMNIPAQUE 350; Contrast volume: 100 ml; Contrast route: INTRAVENOUS (IV); COMPARISON: CT CHEST PE ABD PELVIS W 03/05/2021 12:17 PM FINDINGS: Lungs: No alveolar or ground glass infiltrate. A few areas of linear parenchymal scarring or subsegmental collapse / atelectasis in each lung. No lung contusion. Pleural spaces: No pleural fluid collection. No pneumothorax. Heart: No pericardial effusion. Lymph nodes: No enlarged lymph nodes. Vasculature: Normal caliber thoracic aorta without dissection or aneurysm. Bones/joints: Old non-united fracture of the proximal right humerus. Old rib fractures. No acute fracture. Soft tissues: Small fat-containing umbilical hernia. IMPRESSION: 1. No acute fracture. 2. Old non-united fracture of the proximal right humerus with large right shoulder joint effusion. 3. No acute intrathoracic findings. PROCEDURE INFORMATION: Exam: CT Abdomen And Pelvis With Contrast Exam date and time: 10/23/2022 9:01 PM Age: 76 years old Clinical indication: Pain and injury; Blunt trauma; Fever / fall TECHNIQUE: Imaging protocol: Computed tomography of the abdomen and pelvis with contrast. Contrast material: OMNIPAQUE 350; Contrast volume: 100 ml; Contrast route: INTRAVENOUS (IV); COMPARISON: CT CHEST PE ABD PELVIS W 03/05/2021 12:17 PM FINDINGS: Liver: Normal. No mass. Gallbladder and bile ducts: Normal. No calcified stones. No ductal dilation. Pancreas: Normal. No ductal dilation. Spleen: Normal. No splenomegaly. Adrenal glands: Normal. No mass. Kidneys and ureters: No hydronephrosis. No calcified renal or ureteral stones. No perinephric stranding or perinephric fluid. 2-5 mm renal cortical hypodensities which are too small to definitively characterize. No follow-up imaging is recommended. Stomach and bowel: Unremarkable. No obstruction. No mucosal thickening. Appendix: No evidence of appendicitis. Intraperitoneal space: No free air. No significant fluid collection. Vasculature: The abdominal aorta is normal in caliber without aneurysm or dissection. Lymph nodes: No enlarged lymph nodes. Urinary bladder: Unremarkable as visualized. Reproductive: Prior hysterectomy. Bones/joints: No acute fracture. Soft tissues: Unremarkable. IMPRESSION: 1. No acute fracture. 2. No acute intra-abdominal or pelvic findings. Dictated and Authenticated by: Lacho Pace MD. Ordering:MALLORY Pritchett MD
--- NOTE | 2022-10-23 23:56 | NUR.NOTE ---
Nursing Note: pt continues to be verbally aggressive toward staff, yelling and swearing at us. pt states that she has no needs at this time and I will continue to moniter. 89% o2 on 3L oxymask.
[2022-10-24] VITALS (11 sets, daily range): BP systolic 153–178; BP diastolic 74–88; PULSE 68–93; RESP 14–16; TEMP 35.6–37.1; O2SAT 88–94
[2022-10-24 00:08] LABS: Troponin I < 50 ng/L (<or=60)
--- NOTE | 2022-10-24 05:42 | W.PM.HP.N ---
Date of service: 10/23/22 Time of Service: 23:00 Assessment and Plan Assessment and plan (1) Acute and chronic respiratory failure with hypercapnia: Start date: 10/23/22 Status: Acute Assessment and plan: This is a 76-year-old lady who resides at a [facility] having problems with ambulation and uses a walker at all times. She did have a fall and was found to have a fever with increased oxygen needs. A urinalysis is yet to be obtained to screen for UTI in the elderly with recent fall. She appears to have acute on chronic hypercapnic respiratory failure but no large infiltrates but he does have some focal lung findings on exam. She placed on Rocephin and doxycycline IV with Solu-Medrol IV and will be given aggressive nebulizer treatments with increased O2 supplement since she has increased hypoxemia on her usual continuous oxygen therapy. She will eventually return to the [facility]. She is a DNR/DNI. (2) COPD (chronic obstructive pulmonary disease): Status: Chronic Assessment and plan: Exacerbation with aggressive nebulizer treatments and Solu-Medrol. Long-term she is on oxygen therapy. (3) Schizophrenia: Status: Chronic Assessment and plan: Continue outpatient medical therapy. (4) Fall: Start date: 10/23/22 Status: Acute Assessment and plan: Patient does ambulate with a walker and may need physical therapy prior to returning to [facility]. History of Present Illness History of Present Illness Chief Complaint: Fall with fever and hypoxemia in patient with COPD Narrative: This is a 76-year-old female patient who resides at the [facility] across the street from [facility] who fell when ambulating with a walker which she always uses and was found to have pulse oximeter below 50% with a fever. She was sent to the ED for evaluation and found to have COPD exacerbation with worsening hypercapnic respiratory failure on chronic COPD with hypercapnic respiratory failure. She was requiring increased amounts of oxygen and was started on IV Rocephin and doxycycline for possible infection though CT scan showed no infiltrates. Patient is a DNR/DNI but wants to be treated for infections. The time I saw the patient she was more comfortable on an oxygen mask and speaking in short sentences but without distress. She did respond to nebulizers and did receive Solu-Medrol in the ED. Review of Systems Narrative: 13 point review of systems otherwise unrevealing or stable. Patient is overweight. She does have unsteady gait walking with a walker. PFSH All Active Problems (Updated 10/24/22 @ 06:28 by Rangel Garza) Fall (Acute) Acute and chronic respiratory failure with hypercapnia (Acute) Onychomycosis (Acute) Schizophrenia (Chronic) COPD (chronic obstructive pulmonary disease) (Chronic) Medical History Adhesive capsulitis Age related osteoporosis Dysthymic disorder Emphysema of lung History of tobacco use Hypertension Olecranon bursitis Recurrent vomiting Surgical History History of appendectomy History of total abdominal hysterectomy Social History Smoking/Tobacco Use Status: Former Tobacco Use tobacco type: cigarettes Smoking risk assessment performed?: Yes Alcohol Intake: former Drug use: Never Housing: [facility] Additional Social history: Sister, Bridget Joseph, he is her guardian. [id number] Meds Allergies and Home Medications Allergies Allergy/AdvReac Type Severity Reaction Status Date / Time wool Allergy Intermediate Skin Rash Uncoded 10/23/22 18:53 Home Medications Medication Instructions Recorded Confirmed Type alendronate 70 mg tablet 70 mg PO .WEEKLY 08/22/13 09/03/21 History aspirin 81 mg tablet,delayed 81 mg PO DAILY 08/22/13 09/03/21 History release (Aspir-) conjugated estrogens 0.625 mg 0.625 mg PO DAILY 08/22/13 09/03/21 History tablet (Premarin) meloxicam 15 mg tablet 15 mg PO DAILY 08/22/13 09/03/21 History multivitamin 1 tab PO DAILY 08/22/13 09/03/21 History nifedipine 60 mg tablet,extended 60 mg PO DAILY 08/22/13 09/03/21 History release (Adalat CC) paroxetine HCl 20 mg tablet 20 mg PO DAILY 08/22/13 09/03/21 History risperidone 2 mg tablet (Risperdal) 2 mg PO HS 08/22/13 09/03/21 History sodium bicarbonate 650 mg tablet 1,300 mg PO BID 08/22/13 09/03/21 History calcium carbonate 200 mg calcium 1 tab PO TID 11/06/13 09/03/21 History (500 mg) chewable tablet (Tums) oxycodone-acetaminophen 5 mg-325 1 tab PO Q4H PRN PRN Pain #60 tabs 11/07/13 09/03/21 Rx mg tablet hydrocodone 5 mg-acetaminophen 325 0.5 - 1 tab PO Q4H PRN PRN Pain 12/05/13 09/03/21 Rx mg tablet #20 tabs ranitidine HCl 150 mg tablet 150 mg PO BID #180 tabs 12/05/18 09/03/21 Rx acetaminophen 500 mg tablet 500 mg PO TID 05/06/20 10/23/22 History (Acetaminophen Extra Strength) citalopram 20 mg tablet (Celexa) 15 mg PO DAILY 05/06/20 10/23/22 History dextromethorphan-guaifenesin 10 10 ml PO Q4H PRN PRN Cough 05/06/20 10/23/22 History mg-100 mg/5 mL oral liquid ergocalciferol (vitamin D2) 1,250 See Rx Instructions .Route .COMPLEX 05/06/20 10/23/22 History mcg (50,000 unit) capsule (Drisdol) ipratropium 18 mcg-albuterol 103 1 spray inhalation Q4H WHILE AWAKE 05/06/20 10/23/22 History mcg/actuation aerosol inhaler prednisone 10 mg tablet See Rx Instructions .Route .COMPLEX 05/06/20 09/03/21 History risperidone 0.5 mg tablet 0.5 mg PO BID 05/06/20 10/23/22 History (Risperdal) albuterol 90 mcg/actuation aerosol 90 mcg inhalation Q4H PRN 10/23/22 10/23/22 History inhaler omeprazole 20 mg capsule,delayed 20 mg PO DAILY 10/23/22 10/23/22 History release tramadol 100 mg tablet 100 mg PO BID 10/23/22 10/23/22 History Exam Narrative Exam Narrative: General: Patient appears older than stated age, short stature and moderate to morbidly obese. She is lying bed with the head of the fourth degree angle with oxygen mask in place. She is in no acute distress. She has a hoarse, cracking voice. HEENT: Normocephalic, atraumatic but coarsened facial features. Eyes with pupils equal react light symmetrically, extraocular movement intact and sclera anicteric. Oropharynx with dry mucosa and poor dentition. Neck: Supple without JVD. Back: Kyphotic without CVA tenderness. Lungs: Decreased aeration of the left hemithorax with occasional coarse crackle but no focalizing rales or rhonchi. Bronchovesicular breath sounds diffusely and no auscultated expiratory wheeze. Fair aeration of the right hemithorax. Breast: Exam deferred. Heart: Regular rate and rhythm with no appreciable murmur or gallop. Abdomen: Obese contour, soft and nontender to palpation with no guarding, masses or rebound. No palpable hepatosplenomegaly. Genitalia/rectal: Exam deferred. Extremities: Nonpitting edema which is slight over both lower extremities with no clubbing or cyanosis. Fair capillary refill. Decreased muscular mass lower extremities. Skin: Normal color, warm and dry. Neuro: Cranial nerves II through XII gross intact, no focalizing motor deficits or tremor. Psych: Slightly agitated and anxious affect, mood normal. Normal without processes. Remote and recent memory grossly intact. Results Imaging Imaging Studies: Exam: CT Chest With Contrast; Diagnostic Exam date and time: 10/23/2022 9:01 PM Age: 76 years old Clinical indication: Pain and injury; Blunt trauma; Fever / fall TECHNIQUE: Imaging protocol: Diagnostic computed tomography of the chest with contrast. Contrast material: OMNIPAQUE 350; Contrast volume: 100 ml; Contrast route: INTRAVENOUS (IV);? COMPARISON: CT CHEST PE ABD PELVIS W 03/05/2021 12:17 PM FINDINGS: Lungs: No alveolar or ground glass infiltrate. A few areas of linear parenchymal scarring or subsegmental collapse / atelectasis in each lung. No lung contusion. Pleural spaces: No pleural fluid collection. No pneumothorax. Heart: No pericardial effusion. Lymph nodes: No enlarged lymph nodes. Vasculature: Normal caliber thoracic aorta without dissection or aneurysm. Bones/joints: Old non-united fracture of the proximal right humerus. Old rib fractures. No acute fracture. Soft tissues: Small fat-containing umbilical hernia. IMPRESSION: 1. ? No acute fracture. 2. ? Old non-united fracture of the proximal right humerus with large right shoulder joint effusion. 3. ? No acute intrathoracic findings. PROCEDURE INFORMATION: Exam: CT Abdomen And Pelvis With Contrast Exam date and time: 10/23/2022 9:01 PM Age: 76 years old Clinical indication: Pain and injury; Blunt trauma; Fever / fall TECHNIQUE: Imaging protocol: Computed tomography of the abdomen and pelvis with contrast. Contrast material: OMNIPAQUE 350; Contrast volume: 100 ml; Contrast route: INTRAVENOUS (IV);? COMPARISON: CT CHEST PE ABD PELVIS W 03/05/2021 12:17 PM FINDINGS: Liver: Normal. No mass. Gallbladder and bile ducts: Normal. No calcified stones. No ductal dilation. Pancreas: Normal. No ductal dilation. Spleen: Normal. No splenomegaly. Adrenal glands: Normal. No mass. Kidneys and ureters: No hydronephrosis. No calcified renal or ureteral stones. No perinephric stranding or perinephric fluid. 2-5 mm renal cortical hypodensities which are too small to definitively characterize. No follow-up imaging is recommended. Stomach and bowel: Unremarkable. No obstruction. No mucosal thickening. Appendix: No evidence of appendicitis. Intraperitoneal space: No free air. No significant fluid collection. Vasculature: The abdominal aorta is normal in caliber without aneurysm or dissection. Lymph nodes: No enlarged lymph nodes. Urinary bladder: Unremarkable as visualized. Reproductive: Prior hysterectomy. Bones/joints: No acute fracture. Soft tissues: Unremarkable. IMPRESSION: 1. ? No acute fracture. 2. ? No acute intra-abdominal or pelvic findings. Exam: CT Head Without Contrast Exam date and time: 10/23/2022 8:58 PM Age: 76 years old Clinical indication: Injury or trauma; Fall; Blunt trauma (contusions or hematomas); Consciousness not specified TECHNIQUE: Imaging protocol: Computed tomography of the head without contrast. COMPARISON: No relevant prior studies available. FINDINGS: Brain: Age-related involutional changes and chronic microvascular ischemic disease. No evidence for acute transcortical infarct. No mass effect or midline shift. No extra-axial collection. No acute intracranial hemorrhage. Basal cisterns are patent. Cerebral ventricles: No ventriculomegaly. Paranasal sinuses: Visualized sinuses are unremarkable. No fluid levels. Mastoid air cells: Visualized mastoid air cells are well aerated. Bones/joints: Unremarkable. No acute fracture. Soft tissues: Unremarkable. IMPRESSION: No evidence for acute transcortical infarct, acute intracranial hemorrhage, or mass effect. Labs 10/23/22 19:25 10/23/22 19:25 Labs: Laboratory Results - last 24 hr 10/23/22 10/23/22 10/23/22 19:25 19:25 19:25 WBC 12.10 H RBC 4.71 Hgb 14.5 Hct 46.9 H MCV 100 H MCH 30.8 MCHC 30.9 L RDW 12.3 Plt Count 281 MPV 10.8 Immature Gran % 0.7 Neutrophils % 79.2 Lymphocytes % 12.1 Monocytes % 6.4 Eosinophils % 1.2 Basophils % 0.4 Nucleated RBC % 0.0 Absolute Neutrophils 9.58 H Absolute Lymphocytes 1.46 Absolute Monocytes 0.77 Absolute Eosinophils 0.15 Absolute Basophils 0.05 VBG pH VBG pCO2 VBG pO2 VBG HCO3 VBG Total CO2 VBG O2 Saturation VBG Base Excess VBG Lactate 1.1 Sodium 138 Potassium 4.1 Chloride 99 Carbon Dioxide 33.2 H Anion Gap 5.8 BUN 19 H Creatinine 0.8 Est GFR (CKD-EPI 2020) 76.31 Glucose 127 H Calcium 8.6 Magnesium 2.0 Total Bilirubin 0.3 AST 13 L ALT 11 L Alkaline Phosphatase 75 Troponin I < 50 NT-Pro-B Natriuret Pep 192 Total Protein 7.2 Albumin 3.4 COVID-19 Source SARS-CoV-2 (PCR) Influenza Type A (PCR) Influenza Type B (PCR) RSV (PCR) 10/23/22 10/23/22 10/23/22 19:25 19:47 23:46 WBC RBC Hgb Hct MCV MCH MCHC RDW Plt Count MPV Immature Gran % Neutrophils % Lymphocytes % Monocytes % Eosinophils % Basophils % Nucleated RBC % Absolute Neutrophils Absolute Lymphocytes Absolute Monocytes Absolute Eosinophils Absolute Basophils VBG pH 7.32 VBG pCO2 68 H* VBG pO2 40 VBG HCO3 35 H VBG Total CO2 32 H VBG O2 Saturation 69 VBG Base Excess 9 H VBG Lactate Sodium Potassium Chloride Carbon Dioxide Anion Gap BUN Creatinine Est GFR (CKD-EPI 2020) Glucose Calcium Magnesium Total Bilirubin AST ALT Alkaline Phosphatase Troponin I < 50 NT-Pro-B Natriuret Pep Total Protein Albumin COVID-19 Source Nasopharynx SARS-CoV-2 (PCR) Negative Influenza Type A (PCR) Negative Influenza Type B (PCR) Negative RSV (PCR) Negative Last Vital Signs Temp 37.1 C 10/24/22 04:04 Pulse 90 10/24/22 04:04 Resp 16 10/24/22 04:04 BP 156/88 H 10/24/22 04:04 Pulse Ox 91 L 10/24/22 04:04 Time Spent Time spent with Patient: >75 minutes Time was spent: preparing to see the patient(eg.review tests), obtaining and/or reviewing separately otained hiistory, ordering medications,tests, procedures, referring, communicating with other health resident care coordinator, indepentently interpreting results, counseling the patient and care coordination
[2022-10-24] MEDS: methylPREDNISolone SUCC 125 MG VIAL 80 MG IVP (06:06)
[2022-10-24 07:12] LABS: HCT 45.8 % (36.0-46.0); HGB 14.4 g/dL (11.2-15.7); MCH 30.7 pg (27.0-33.0); MCHC 31.4 % (32.0-36.0); MCV 98 fL (80-95); MPV 10.5 fL (8.0-11.0); Platelet Count 271 10^3/uL (130-400); RBC 4.69 10^6/uL (3.93-5.22); RDW 12.1 % (11.7-14.6); RDW-SD 43.8 fL; WBC 11.47 10^3/uL (4.4-10.8)
[2022-10-24 07:47] LABS: TSH (W/Ref FT4) 0.47 uIU/mL (0.36-3.74)
[2022-10-24] MEDS: Enoxaparin 40 MG/0.4 ML SYR SC (07:47)
[2022-10-24] MEDS: Aspirin E.C. 81 MG TABEC PO (07:47)
[2022-10-24] MEDS: Normal Saline Flush 10 ML SYR IVP (07:47)
[2022-10-24] MEDS: traMADol 50 MG TAB 100 MG PO ×2 (07:48→21:39)
[2022-10-24] MEDS: Calcium Carbonate *TUMS* 500 MG CHEW PO ×2 (07:48→21:40)
[2022-10-24] MEDS: Citalopram 10 MG TAB 15 MG PO (07:48)
[2022-10-24] MEDS: risperiDONE 0.5 MG TAB PO ×2 (07:48→21:39)
[2022-10-24] MEDS: Omeprazole 20 MG CAPCR PO (07:48)
--- NOTE | 2022-10-24 08:40 | INITIAL_ITS ---
Date of service: 10/24/22 Time of Service: 08:40 Care Management Initial Assmt Initial Assessment REASON FOR HOSPITALIZATION:: acute and chronic respiratory failure PREVIOUS FUNCTIONAL STATUS/SOCIAL/FAMILY SUPPORTS:: Pennei resides at [facility] in [place]. Her sister Bridget Joseph is also her guardian ([phone]) . When CM attempted to interview Pennie she stated that she lives alone in an apartment on [address] in [place] and that she does not have any children. She did admit to using a walker. CURRENT FUNCTIONAL STATUS:: CM attempted to meet with Lynn but she was clearly confused. She was unable to identify where she lives or provide any meaningful information. Lynn would answer questions, but each answer became louder and she sounded more irritable, muttering expletives after each response. CM attempted to call her sister Bridget for additional information but was unable to reach her. ADVANCE DIRECTIVES:: [facility] on file. DNR/DNI Has patient been provided with info about the portal/API?: Yes Did the patient sign up for the portal?: No CODE STATUS:: DNR/DNI INSURANCE COVERAGE / FINANCIAL ISSUES:: Medicare Medicaid CURRENT HOME/COMMUNITY SERVICES/EQUIPMENT:: Lives at the [facility] and uses a walker at all times for ambulaation PRIMARY CARE PHYSICIAN:: Divya Beverly POTENTIAL DISCHARGE NEEDS:: follow up appointments PATIENT/FAMILY EDUCATION NEEDS:: Review of discharge instructions, limitations, follow up plan, discuss [employer] Me [employer] TRANSPORTATION:: via [facility] w/c van coordinated by [facility] PLAN:: Anticipate Pennie will return to [facility] when medically cleared. She will follow up with the facility providers and plan of care and transport via W/C van coordinated by [facility]. CM will follow and support discharge needs. PFSH All Active Problems (Updated 10/24/22 @ 06:28 by Rangel Garza) Fall (Acute) Acute and chronic respiratory failure with hypercapnia (Acute) Onychomycosis (Acute) Schizophrenia (Chronic) COPD (chronic obstructive pulmonary disease) (Chronic) Medical History Adhesive capsulitis Age related osteoporosis Dysthymic disorder Emphysema of lung History of tobacco use Hypertension Olecranon bursitis Recurrent vomiting Surgical History History of appendectomy History of total abdominal hysterectomy Social History Smoking/Tobacco Use Status: Former Tobacco Use tobacco type: cigarettes Smoking risk assessment performed?: Yes Alcohol Intake: former Drug use: Never Housing: group home Additional Social history: Sister, Bridget Joseph, he is her guardian. [phone]
[2022-10-24] MEDS: DOXYCYCLINE 100 MG in Normal Saline 100 ML IVPB ×2 (10:14→21:40)
[2022-10-24] MEDS: Mylanta Suspension 30 ML CUP PO (10:14)
--- NOTE | 2022-10-24 11:05 | NUR.NOTE ---
Nursing Note: spoke with guardiandrei nj and updated on poc
[2022-10-24] MEDS: Magnesium Citrate 300 ML BTL PO (12:32)
[2022-10-24] MEDS: Albuterol/Ipratropium 3 ML UPD VIAL UPD (12:52)
[2022-10-24] MEDS: cefTRIAXone 2 GM/50 ML BAG IVPB (21:40)
[2022-10-25] VITALS (10 sets, daily range): BP systolic 143–174; BP diastolic 76–92; PULSE 68–83; RESP 17–18; TEMP 35.9–36.3; O2SAT 91–94
[2022-10-25 07:05] LABS: HCT 45.4 % (36.0-46.0); HGB 14.6 g/dL (11.2-15.7); MCH 30.8 pg (27.0-33.0); MCHC 32.2 % (32.0-36.0); MCV 96 fL (80-95); MPV 10.6 fL (8.0-11.0); Platelet Count 280 10^3/uL (130-400); RBC 4.74 10^6/uL (3.93-5.22); RDW 12.3 % (11.7-14.6); RDW-SD 43.6 fL; WBC 11.64 10^3/uL (4.4-10.8)
[2022-10-25 07:26] LABS: ALT 17 U/L (14-59); AST 30 U/L (15-37); Albumin 3.4 g/dL (3.4-5.0); Alkaline Phosphatase 68 U/L (46-116); Anion Gap 4.6 mmol/L (3-11); BUN 15 mg/dL (7-18); Bilirubin, Total 0.5 mg/dL (0.2-1.0); CO2 32.4 mmol/L (21.0-32.0); CREATININE 0.6 mg/dL (0.55-1.02); Calcium 9.1 mg/dL (8.5-10.1); Chloride 100 mmol/L (98-107); Estimated GFR 92.97 (mL/min/1.73m2); Glucose 85 mg/dL (74-106); Potassium 3.9 mmol/L (3.5-5.1); Sodium 137 mmol/L (136-145); Total Protein 7.2 g/dL (6.4-8.2)
[2022-10-25] MEDS: predniSONE 20 MG TAB 40 MG PO (07:53)
[2022-10-25] MEDS: Enoxaparin 40 MG/0.4 ML SYR SC (07:54)
[2022-10-25] MEDS: risperiDONE 0.5 MG TAB PO ×2 (07:54→19:33)
[2022-10-25] MEDS: traMADol 50 MG TAB 100 MG PO ×2 (07:54→19:32)
[2022-10-25] MEDS: Calcium Carbonate *TUMS* 500 MG CHEW PO ×2 (07:54→19:33)
[2022-10-25] MEDS: Aspirin E.C. 81 MG TABEC PO (07:54)
[2022-10-25] MEDS: Citalopram 10 MG TAB 15 MG PO (07:54)
[2022-10-25] MEDS: Omeprazole 20 MG CAPCR PO (07:54)
[2022-10-25] MEDS: Normal Saline Flush 10 ML SYR IVP ×2 (07:55→10:59)
--- NOTE | 2022-10-25 08:09 | W.PALLCONSUL ---
Date of service: 10/25/22 Time of Service: 08:09 History of Present Illness History of Present Illness Chief Complaint: Fall Narrative: I know Lynn very well. 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 I have continued to see her intermittently for palliative care. Briefly Lynn is a 76-year-old woman institutionalized because of her schizophrenia. She is here because she fell. She states she just lost her balance. She did not have any prodromal of any type of syncope or presyncopal. She states that she wants to go back to the [facility] as soon as possible. She feels that she is very healthy in general and does not want to remain in the hospital Staff states that she was not willing to have frequent examinations. She often had very colorful words to say to staff. Today she greeted me and said bri Gates Assessment and Plan Assessment and plan (1) Fall: Status: Acute (2) Schizophrenia: Status: Chronic (3) COPD (chronic obstructive pulmonary disease): Status: Chronic (4) Palliative care patient: Status: Acute Assessment and plan: She wants to return to the [facility] janae. Although she has oxygen on it is not supplying her with a additional oxygen rather the O2 sat is probably on room air. Shoulder x-rays are pending. I do see rib fractures and the report on her CT scan. I will continue to follow her at the [facility]. Review of Systems Narrative: She states that she fell because she lost her balance and otherwise she feels very very healthy PFSH All Active Problems (Updated 10/25/22 @ 08:09 by Jackie Gates MD, [place]) Palliative care patient (Acute) Fall (Acute) Acute and chronic respiratory failure with hypercapnia (Acute) Onychomycosis (Acute) Schizophrenia (Chronic) COPD (chronic obstructive pulmonary disease) (Chronic) Medical History Adhesive capsulitis Age related osteoporosis Dysthymic disorder Emphysema of lung History of tobacco use Hypertension Olecranon bursitis Recurrent vomiting Surgical History History of appendectomy History of total abdominal hysterectomy Social History Smoking/Tobacco Use Status: Former Tobacco Use tobacco type: cigarettes Smoking risk assessment performed?: Yes Alcohol Intake: former Drug use: Never Housing: assisted Additional Social history: Sister, Bridget Joseph, he is her guardian. [id number] Exam Narrative Exam Narrative: Lynn appears to be at her baseline. I did not have her walk. She did allow me to examine her. Her mood is baseline. Her heart was regular. She had good air movement. She does have oxygen on but the nasal cannula are not in her nose but rather up on her zygomatic arch. Results Last Vital Signs Temp 97.9 F 10/24/22 22:00 Pulse 68 10/24/22 22:00 Resp 16 10/24/22 22:00 BP 155/87 H 10/24/22 22:00 Pulse Ox 92 10/24/22 22:00 INDINGS: ?The examination is limited due to patient motion artifact. CHEST: Tracheobronchial tree: Patent where visualized. Pulmonary parenchyma: No consolidation or dominant measurable mass. Mild scarring or atelectasis is seen in the lungs.? Visualized thyroid gland: Unremarkable. Mediastinum and Bernie: No dominant adenopathy or fluid collection. The esophagus is fluid-filled.? This raises the risk of aspiration.? Pleura: No effusion or pneumothorax. Heart: The heart is not dilated. Coronary artery calcification is present.? No pericardial effusion. Pulmonary arteries: Pulmonary arteries are inadequately opacified for evaluation of pulmonary emboli.? Aorta: Thoracic aorta non-dilated. Atherosclerosis is present. Lymph nodes: Within normal limits. Soft tissues: Unremarkable.? Bones:Within normal limits for the patient's age.? Old proximal right humeral fracture which is stable.? Subacute right 2nd rib fracture.? Old healed right rib fracture deformities. ABDOMEN: Liver: Normal density. No measurable mass. Portal, Superior Mesenteric, and Splenic Veins: Unremarkable.? Gallbladder and Biliary Tract: No radiodense calculus or dilation. Pancreas: Normal density, no abnormal calcifications or inflammatory process. Spleen: Normal. Adrenals: No masses seen. Kidneys: Normal size, contour and axis. No radiodense stones or obstructive uropathy. No masses seen. Abdominal Aorta: Abdominal portion non-dilated. Atherosclerosis. Bowel: There is diverticulosis of the colon but no evidence of acute diverticulitis.? There is no evidence of bowel obstruction or bowel wall thickening.? No evidence of acute appendicitis.? Peritoneal Cavity: No ascites, collection or mesenteric inflammatory response.? No free air.? Lymph Nodes: Within normal limits. Bones: Within normal limits for the patient's age.? Soft Tissues: There is a small fat containing umbilical hernia.? PELVIS: Bladder: There is diffuse thickening of the wall of the urinary bladder.? Reproductive Organs: Status post hysterectomy.? Lymph Nodes: Within normal limits. Bones: Within normal limits. IMPRESSION: 1. No acute pulmonary process. 2. Old nonunited for proximal right humeral fracture. 3. Subacute and old right rib fractures.? 4. No acute abdominal pelvic process.? Head CT - no intracranial findings Labs 10/25/22 06:25 10/25/22 06:25 Labs: Laboratory Results - last 24 hr 10/24/22 10/25/22 10/25/22 06:44 06:25 06:25 WBC 11.64 H RBC 4.74 Hgb 14.6 Hct 45.4 MCV 96 H MCH 30.8 MCHC 32.2 RDW 12.3 Plt Count 280 MPV 10.6 Sodium 137 Potassium 3.9 Chloride 100 Carbon Dioxide 32.4 H Anion Gap 4.6 BUN 15 Creatinine 0.6 Est GFR (CKD-EPI 2020) 92.97 Glucose 85 Calcium 9.1 Total Bilirubin 0.5 AST 30 ALT 17 Alkaline Phosphatase 68 Total Protein 7.2 Albumin 3.4 TSH 0.47
--- NOTE | 2022-10-25 10:55 | DI.RAD_ITS ---
Exam(s) XR SHOULDER RT COMPLETE 2+V EXAM: XR SHOULDER RT COMPLETE 2+V CLINICAL HISTORY: s/p fall a few days ago with right shoulder pain. TECHNIQUE: 2D digital imaging was performed. Five views. COMPARISON: CR XR PORTABLE CHEST AP from 05/06/2020 CR XR PORTABLE CHEST AP from 03/05/2021 CR XR SHOULDER RT COMPLETE 2+V from 03/05/2021 FINDINGS: BONES: There is an old nonunited proximal humeral fracture. The alignment appears unchanged from the prior exams. There are old right rib fractures and question of superimposed acute lower right rib f ractures no bony destructive lesion is seen. JOINTS: No dislocation present. SOFT TISSUE: Normal. IMPRESSION: Old nonunited proximal humeral fracture. Question acute versus subacute right rib fractures. Old ri b fractures also present. DATA REPOSITORY: RADIATION DOSE DELIVERED:
[2022-10-25] MEDS: Ketorolac 15 MG/ML VIAL IVP ×2 (10:59→19:33)
[2022-10-25] MEDS: DOXYCYCLINE 100 MG in Normal Saline 100 ML IVPB ×2 (10:59→22:15)
--- NOTE | 2022-10-25 14:02 | PDOC.CMPRO ---
Date of service: 10/25/22 Time of Service: 14:02 Care Management Progress Note Progress Note Text Progress Note Text: S/O: Lynn remains inpatient at this time, she met with long time provider Dr. Gates this morning and reports hoping to return to the [facility] as soon as possible. No change to overall plan. CM continues to follow. A: 76 year old female admitted to [facility] 10/23/22 for respiratory failure P: Pennie will return to [facility] when medically cleared. She will follow up with the facility providers and plan of care and transport via W/C van coordinated by CM. CM will follow and support discharge needs.
--- NOTE | 2022-10-25 14:29 | W.PM.PROGNOT ---
Date of Service Date of service: 10/25/22 Time of Service: 14:30 Assessment and Plan Assessment and plan (1) Gram-positive bacteremia: Status: Resolved Assessment and plan: 2 bottles positive. ID pending continue ceftriaxone, vanco added. repeat cultures today. hemodynamically stable, continue to closely monitor. (2) Acute and chronic respiratory failure with hypercapnia: Status: Acute Assessment and plan: baseline supplemental oxygen. continue steroids and antibiotics day 2 (3) COPD (chronic obstructive pulmonary disease): Status: Chronic Assessment and plan: Exacerbation with aggressive nebulizer treatments and Solu-Medrol. Long-term she is on oxygen therapy. (4) Schizophrenia: Status: Chronic Assessment and plan: Continue outpatient medical therapy. (5) Fall: Status: Acute Assessment and plan: Patient does ambulate with a walker and may need physical therapy prior to returning [facility]. (6) Constipation: Status: Acute Assessment and plan: received mag citrate with good effect, continue bowel management (7) Right shoulder pain: Status: Acute Assessment and plan: xray and pain management add scheduled apap, prn toradol, lidocaine patch ice, and PT consult discussed with Dr Mcmahon. Subjective Subjective Patient reports: bowel movement (reported as copious) Interval history since last seen: complaining of pain to right shoulder, no fevers, otherwise no c/o Exam Const General: no acute distress and ill appearing chronically Nutritional Appearance: overweight Orientation: alert and awake [facility] Head: normal to inspection, normocephalic and atraumatic Mouth: oral mucosae normal Chest Chest: normal inspection of the chest Resp Effort & Inspection: normal respiratory effort Auscultation: diminished lung sounds (scattered course breath sound) bilaterally in the lower lung gillespie Cardio Rate: regular rate Rhythm: regular rhythm GI Inspection: normal to inspection Palpation: soft Auscultation: normal bowel sounds Neuro General: patient alert, patient awake and moves all extremities Objective Last Vital Signs Temp 35.9 C L 10/25/22 11:30 Pulse 78 10/25/22 11:30 Resp 17 10/25/22 11:30 BP 148/83 H 10/25/22 11:59 Pulse Ox 91 L 10/25/22 11:30 Laboratory Results - last 24 hr 10/25/22 10/25/22 06:25 06:25 WBC 11.64 H RBC 4.74 Hgb 14.6 Hct 45.4 MCV 96 H MCH 30.8 MCHC 32.2 RDW 12.3 Plt Count 280 MPV 10.6 Sodium 137 Potassium 3.9 Chloride 100 Carbon Dioxide 32.4 H Anion Gap 4.6 BUN 15 Creatinine 0.6 Est GFR (CKD-EPI 2020) 92.97 Glucose 85 Calcium 9.1 Total Bilirubin 0.5 AST 30 ALT 17 Alkaline Phosphatase 68 Total Protein 7.2 Albumin 3.4 Time Spent with Patient Time Spent with Patient: 25-34 minutes Time was spent: preparing to see the patient(eg.review tests), obtaining and/or reviewing separately otained hiistory, ordering medications,tests, procedures, referring, communicating with other health director of patient care, indepentently interpreting results, counseling the patient and care coordination
[2022-10-25] MEDS: Acetaminophen 325 MG TAB PO ×2 (16:29→21:08)
[2022-10-25] MEDS: Lidocaine 5% Patch 1 PATCH TP (16:30)
[2022-10-25] MEDS: VANCOMYCIN/WATER (PEG) 750 MG/150 ML BAG 150 MG IVPB (16:31)
[2022-10-25] MEDS: guaiFENesin/D-METHORPHAN HB 5 ML CUP 10 ML PO (19:33)
[2022-10-25] MEDS: cefTRIAXone 2 GM/50 ML BAG IVPB (19:34)
[2022-10-26 03:21] VITALS: BP 138/74; PULSE 78; RESP 17; TEMP 36.3; O2SAT 92
[2022-10-26] MEDS: VANCOMYCIN/WATER (PEG) 750 MG/150 ML BAG 150 MG IVPB ×2 (04:11→16:24)
[2022-10-26 07:34] VITALS: BP 165/116; PULSE 88; TEMP 35.8; O2SAT 89
[2022-10-26] MEDS: Calcium Carbonate *TUMS* 500 MG CHEW PO ×2 (08:18→19:43)
[2022-10-26] MEDS: Acetaminophen 325 MG TAB PO ×3 (08:19→19:43)
[2022-10-26] MEDS: predniSONE 20 MG TAB 40 MG PO (08:19)
[2022-10-26] MEDS: Aspirin E.C. 81 MG TABEC PO (08:19)
[2022-10-26] MEDS: Citalopram 10 MG TAB 15 MG PO (08:19)
[2022-10-26] MEDS: traMADol 50 MG TAB 100 MG PO ×2 (08:20→19:43)
[2022-10-26] MEDS: risperiDONE 0.5 MG TAB PO ×2 (08:20→19:43)
[2022-10-26] MEDS: Omeprazole 20 MG CAPCR PO (08:20)
[2022-10-26 08:27] VITALS: O2SAT 92
[2022-10-26] MEDS: DOXYCYCLINE 100 MG in Normal Saline 100 ML IVPB ×2 (10:30→21:28)
--- NOTE | 2022-10-26 11:07 | PT.INNT ---
PT Notes Visit Reasons: Respiratory Failure Patient at first agreed to try go for a walk when PT emphasized that it was needed prior to her being able to go back to the [facility]. When PT had everything set up, patient demanded that PT get out of the room saying that she does not want to to walk. Nurse Sosa came in to help but patient was firm and angry about not wanting to move. Nurse Todd said that patient walked a short distance inside room using the front-wheeled walker with just stand by assist nhung this morning. Sounds like patient may be at baseline mobility level requiring stand by assist but will try attempt another shot at eval later today to see how her impaired respiratory function will respond to short distance ambulation. Patient saturated at 97% on 1L at rest prior at start of session.
--- NOTE | 2022-10-26 12:00 | PGE_ITS ---
Date of Service Date of service: 10/26/22 Time of Service: 12:00 Assessment and Plan Assessment and plan (1) Gram-positive bacteremia: Status: Acute Assessment and plan: 2 bottles positive. staph hominis both bottles, sensitivity pending continue ceftriaxone day 3, vanco day 2 repeat cultures from yesterday pending hemodynamically stable, continue to closely monitor. (2) Acute and chronic respiratory failure with hypercapnia: Status: Acute Assessment and plan: baseline supplemental oxygen. continue steroids and antibiotics day 3 (3) COPD (chronic obstructive pulmonary disease): Status: Chronic Assessment and plan: Exacerbation with aggressive nebulizer treatments and Solu-Medrol. Long-term she is on oxygen therapy. (4) Schizophrenia: Status: Chronic Assessment and plan: Continue outpatient medical therapy. (5) Fall: Status: Acute Assessment and plan: Patient does ambulate with a walker and may need physical therapy prior to returning to [facility]. (6) Constipation: Status: Acute Assessment and plan: received mag citrate with good effect, continue bowel management (7) Right shoulder pain: Status: Acute Assessment and plan: xray and pain management add scheduled apap, prn toradol, lidocaine patch ice, and PT consult discussed with Dr Mcmahon. Subjective Subjective Patient reports: no new complaints, feels better, tolerating liquids well, tolerating a regular diet, bowel movement and afebrile; denies shortness of breath Exam Const General: no acute distress and ill appearing chronically Nutritional Appearance: overweight Orientation: alert and awake [facility] Head: normal to inspection, normocephalic and atraumatic Mouth: oral mucosae normal Chest Chest: normal inspection of the chest Resp Effort & Inspection: normal respiratory effort Auscultation: diminished lung sounds (scattered course breath sound) bilaterally in the lower lung gillespie Cardio Rate: regular rate Rhythm: regular rhythm GI Inspection: normal to inspection Palpation: soft Auscultation: normal bowel sounds Neuro General: patient alert, patient awake and moves all extremities Objective Last Vital Signs Temp 35.8 C L 10/26/22 07:34 Pulse 88 10/26/22 07:34 Resp 17 10/26/22 03:21 BP 165/116 H 10/26/22 07:34 Pulse Ox 92 10/26/22 08:27 Laboratory Results - last 24 hr 10/23/22 22:27 Urine Color Cancelled Urine Clarity Cancelled Urine pH Cancelled Ur Specific Troy Cancelled Urine Protein Cancelled Urine Ketones Cancelled Urine Blood Cancelled Urine Nitrite Cancelled Urine Bilirubin Cancelled Urine Urobilinogen Cancelled Ur Leukocyte Esterase Cancelled Urine Glucose Cancelled Time Spent with Patient Time Spent with Patient: 25-34 minutes Time was spent: preparing to see the patient(eg.review tests), obtaining and/or reviewing separately otained hiistory and counseling the patient
--- NOTE | 2022-10-26 12:34 | PDOC.CMPRO ---
Date of service: 10/26/22 Time of Service: 12:35 Care Management Progress Note Progress Note Text Progress Note Text: S/O: Lynn remains inpatient at this time, awaiting negative blood cultures, per MD. No change to overall plan. CM continues to follow. A: 76 year old female admitted to [facility] 10/23/22 for respiratory failure P: Pennie will return to [facility] when medically cleared. She will follow up with the facility providers and plan of care and transport via W/C van coordinated by CM. CM will follow and support discharge needs.
[2022-10-26 15:32] VITALS: BP 143/96
[2022-10-26] MEDS: Lidocaine 5% Patch 1 PATCH TP (16:24)
[2022-10-26] MEDS: cefTRIAXone 2 GM/50 ML BAG IVPB (19:44)
--- NOTE | 2022-10-26 21:24 | NUR.NOTE ---
Nursing Note: patient's brief is wet patient refusing to let me change it at this time
[2022-10-27] MEDS: VANCOMYCIN/WATER (PEG) 750 MG/150 ML BAG 150 MG IVPB ×2 (03:02→17:04)
[2022-10-27 08:46] VITALS: PULSE 95; O2SAT 92
--- NOTE | 2022-10-27 08:47 | PCPN_ITS ---
Date of service: 10/26/22 Time of Service: 08:48 Assessment and Plan Assessment and plan (1) Fall: Status: Acute (2) Palliative care patient: Status: Acute Assessment and plan: I did contact Lynn's nurse practitioner at the [facility]. She occasionally uses oxygen. She did have 2 more bottles of blood drawn recently and so far no growth. Hopefully she will return to the [facility] of medications. The final sensitivities are not back on her 10/23/2022 bottle. Schizophrenia at baseline I will follow her at the [facility] Subjective Subjective Interval history since last seen: Lynn has continued to keep people on their toes. She tells me that she feels good wants to go back to the [facility]. She is agreeable to the treatments that have been given to her but her goal is to return to the [facility] as soon as possible. Exam Narrative Exam Narrative: Pennie and Franky have a relationship that spans 10+ years. She addressed me by name. She was alert and pleasant. There was no cussing. Her heart was regular. Breathing was good. She did not have any suprapubic pain. She was at baseline. Objective Last Vital Signs Temp 96.4 F L 10/26/22 07:34 Pulse 95 H 10/27/22 08:46 Resp 17 10/26/22 03:21 BP 143/96 H 10/26/22 15:32 Pulse Ox 92 10/27/22 08:46 Laboratory Results - last 24 hr 10/27/22 03:00 Vancomycin Trough Cancelled
[2022-10-27] MEDS: Calcium Carbonate *TUMS* 500 MG CHEW PO ×3 (08:49→19:25)
[2022-10-27] MEDS: Citalopram 10 MG TAB 15 MG PO (08:50)
[2022-10-27] MEDS: Aspirin E.C. 81 MG TABEC PO (08:51)
[2022-10-27] MEDS: Acetaminophen 325 MG TAB PO ×3 (08:52→19:25)
[2022-10-27] MEDS: traMADol 50 MG TAB 100 MG PO ×2 (08:53→19:25)
[2022-10-27] MEDS: Omeprazole 20 MG CAPCR PO (08:54)
[2022-10-27] MEDS: predniSONE 20 MG TAB 40 MG PO (08:55)
[2022-10-27] MEDS: risperiDONE 0.5 MG TAB PO ×2 (08:56→19:25)
[2022-10-27] MEDS: Normal Saline Flush 10 ML SYR IVP ×2 (08:57→17:05)
[2022-10-27] MEDS: DOXYCYCLINE 100 MG in Normal Saline 100 ML IVPB ×2 (10:52→21:32)
--- NOTE | 2022-10-27 11:00 | PGE_ITS ---
Date of Service Date of service: 10/27/22 Time of Service: 13:00 Assessment and Plan Assessment and plan (1) Gram-positive bacteremia: Status: Acute Assessment and plan: 2 bottles positive. staph hominis pedi bottle, staph warneri aerobic bottle, sensitivity pending, - possible skin contaminant - second set - no growth continue ceftriaxone day 4, vanco day 3 Call ID [id number] for consult hemodynamically stable, continue to closely monitor. (2) Acute and chronic respiratory failure with hypercapnia: Status: Acute Assessment and plan: baseline supplemental oxygen. continue steroids and antibiotics day 4 (3) COPD (chronic obstructive pulmonary disease): Status: Chronic Assessment and plan: Exacerbation with aggressive nebulizer treatments and Solu-Medrol. Long-term she is on oxygen therapy. Refused exercise oximetry (4) Schizophrenia: Status: Chronic Assessment and plan: Continue outpatient medical therapy. (5) Fall: Status: Acute Assessment and plan: Patient does ambulate with a walker PT consult (6) Constipation: Status: Acute Assessment and plan: continue bowel management (7) Right shoulder pain: Status: Acute Assessment and plan: Refusing blood, bath, unkind to staff, yelling, swearing, would like to return to the [facility] - she is able to go back 10/28 will be day 5 of abx and she can have oral abx at the [facility] - process control specialist's aware of plan to return to the [facility] on 10/[address] Ochoa. Subjective Subjective Interval history since last seen: Patient refusing treatment, will no allow blood to be drawn, swearing and tyring to hit staff. She has stable vital signs. She is eating well. She would like to return to the [facility]. Exam Const General: no acute distress and ill appearing chronically Nutritional Appearance: overweight Orientation: alert and awake [facility] Head: normal to inspection, normocephalic and atraumatic Mouth: oral mucosae normal Chest Chest: normal inspection of the chest Resp Effort & Inspection: normal respiratory effort Auscultation: diminished lung sounds (scattered course breath sound) bilaterally in the lower lung gillespie Cardio Rate: regular rate Rhythm: regular rhythm GI Inspection: normal to inspection Palpation: soft Auscultation: normal bowel sounds Neuro General: patient alert, patient awake and moves all extremities Objective Last Vital Signs Temp 36.4 C L 10/27/22 19:37 Pulse 98 H 10/27/22 19:37 Resp 18 10/27/22 19:37 BP 164/83 H 10/27/22 19:37 Pulse Ox 89 L 10/27/22 19:37 Laboratory Results - last 24 hr 10/27/22 10/27/22 10/27/22 03:00 11:00 11:00 WBC Cancelled RBC Cancelled Hgb Cancelled Hct Cancelled MCV Cancelled MCH Cancelled MCHC Cancelled RDW Cancelled Plt Count Cancelled MPV Cancelled Immature Gran % Cancelled Neutrophils % Cancelled Band Neutrophils % Cancelled Lymphocytes % Cancelled Atypical Lymphs % Cancelled Monocytes % Cancelled Eosinophils % Cancelled Basophils % Cancelled Metamyelocytes % Cancelled Myelocytes % Cancelled Promyelocytes % Cancelled Other Cells % Cancelled Nucleated RBC % Cancelled Absolute Neutrophils Cancelled Absolute Lymphocytes Cancelled Absolute Monocytes Cancelled Absolute Eosinophils Cancelled Absolute Basophils Cancelled RBC Morphology Cancelled Polychromasia Cancelled Hypochromasia Cancelled Poikilocytosis Cancelled Basophilic Stippling Cancelled Anisocytosis Cancelled Microcytosis Cancelled Macrocytosis Cancelled Spherocytes Cancelled Tear Drop Cells Cancelled Ovalocytes Cancelled Stomatocytes Cancelled Lares-Schaller Bodies Cancelled Salazar Cells/Echinocytes Cancelled Acanthocytes (Spur) Cancelled Schistocytes Cancelled Sodium Cancelled Potassium Cancelled Chloride Cancelled Carbon Dioxide Cancelled Anion Gap Cancelled BUN Cancelled Creatinine Cancelled Est GFR (CKD-EPI 2020) Cancelled Glucose Cancelled Calcium Cancelled C-Reactive Protein Cancelled Procalcitonin Vancomycin Trough Cancelled 10/27/22 10/27/22 11:00 15:00 WBC RBC Hgb Hct MCV MCH MCHC RDW Plt Count MPV Immature Gran % Neutrophils % Band Neutrophils % Lymphocytes % Atypical Lymphs % Monocytes % Eosinophils % Basophils % Metamyelocytes % Myelocytes % Promyelocytes % Other Cells % Nucleated RBC % Absolute Neutrophils Absolute Lymphocytes Absolute Monocytes Absolute Eosinophils Absolute Basophils RBC Morphology Polychromasia Hypochromasia Poikilocytosis Basophilic Stippling Anisocytosis Microcytosis Macrocytosis Spherocytes Tear Drop Cells Ovalocytes Stomatocytes Lares-Schaller Bodies [place] Cells/Echinocytes Acanthocytes (Spur) Schistocytes Sodium Potassium Chloride Carbon Dioxide Anion Gap BUN Creatinine Est GFR (CKD-EPI 2020) Glucose Calcium C-Reactive Protein Procalcitonin Cancelled Vancomycin Trough Cancelled Time Spent with Patient Time Spent with Patient: >50 minutes Time was spent: preparing to see the patient(eg.review tests), ordering medications,tests, procedures, referring, communicating with other health caregivers non medical, indepentently interpreting results, counseling the patient and care coordination
--- NOTE | 2022-10-27 11:58 | PT.INNT ---
PT Notes Visit Reasons: Respiratory Failure Patient has been refusing attempts at working with PT. Patient is also not also appropriate at this time.
--- NOTE | 2022-10-27 12:33 | NUR.NOTE ---
Accessed pt chart to determine number of EKG orders. Duplicate order cancelled. Nursing Note:
--- NOTE | 2022-10-27 12:54 | PDOC.CMPRO ---
Date of service: 10/27/22 Time of Service: 12:54 Care Management Progress Note Progress Note Text Progress Note Text: S/O: Lynn remains inpatient at this time, awaiting negative blood cultures, per MD. Lynn is refusing blood draw, CM spoke to [facility] staff who stated that Lynn is more agreeable with family support as well as being encouraged that medical interventions will permit her to return to the [facility] faster; CM reviewed with Lynn-encouraging blood draw. No change to overall plan. CM continues to follow. A: 76 year old female admitted to [facility] 10/23/22 for respiratory failure P: Pennie will return to The [facility] when medically cleared. She will follow up with the facility providers and plan of care and transport via W/C van coordinated by [facility]. CM will follow and support discharge needs.
--- NOTE | 2022-10-27 14:19 | NUR.NOTE ---
Nursing Note: Patient refused AM physical assessment
[2022-10-27 15:45] VITALS: BP 161/96; PULSE 86; RESP 20; TEMP 36.6; O2SAT 90
[2022-10-27] MEDS: Lidocaine 5% Patch 1 PATCH TP (17:04)
[2022-10-27] MEDS: cefTRIAXone 2 GM/50 ML BAG IVPB (19:26)
[2022-10-27 19:37] VITALS: BP 164/83; PULSE 98; RESP 18; TEMP 36.4; O2SAT 89
[2022-10-28] MEDS: VANCOMYCIN/WATER (PEG) 750 MG/150 ML BAG 150 MG IVPB (03:07)
[2022-10-28] MEDS: Acetaminophen 325 MG TAB PO ×2 (08:20→12:15)
[2022-10-28] MEDS: Omeprazole 20 MG CAPCR PO (08:20)
[2022-10-28] MEDS: predniSONE 20 MG TAB 40 MG PO (08:20)
[2022-10-28] MEDS: traMADol 50 MG TAB 100 MG PO (08:20)
[2022-10-28] MEDS: Citalopram 10 MG TAB 15 MG PO (08:21)
[2022-10-28] MEDS: Calcium Carbonate *TUMS* 500 MG CHEW PO ×2 (08:21→14:13)
[2022-10-28] MEDS: Normal Saline Flush 10 ML SYR IVP (08:22)
[2022-10-28] MEDS: risperiDONE 0.5 MG TAB PO (08:23)
[2022-10-28] MEDS: Aspirin E.C. 81 MG TABEC PO (08:24)
[2022-10-28] MEDS: DOXYCYCLINE 100 MG in Normal Saline 100 ML IVPB (10:21)
--- NOTE | 2022-10-28 12:09 | DSE_ITS ---
Date of service: 10/28/22 Time of Service: 12:09 DS: Diagnosis Discharge Diagnosis (1) Fall: Status: Acute (2) COPD (chronic obstructive pulmonary disease): Status: Chronic (3) Gram-positive bacteremia: Status: Acute Discharge Plan Disposition Patient Disposition: Home Condition: Stable Discharge Details Reason For Visit: Respiratory Failure Admit Date/Time: 10/24/22 05:37 Admit Provider: Rangel Garza Attending Provider: Rangel Garza Primary Care Provider: Divya Beverly Hospital Course Hospital Course: This is a 76-year-old female patient who resides at the [facility] across the street from [facility] who fell when ambulating with a walker which she always uses and was found to have pulse oximeter below 50% with a fever.? She was sent to the ED for evaluation and found to have COPD exac erbation with worsening hypercapnic respiratory failure on chronic COPD with hypercapnic respiratory failure.? She was requiring increased amounts of oxygen and was started on IV Rocephin and doxycycline for possible infection though CT scan showed no infiltrates.? She responded slowly to treatment, weaning down on oxygen. she was eating and drinking. She did complain of right shoulder pain, which was imaged and showed no acute fractures or dislocations. Blood culture bottles grew staph hominis pedi bottle, staph warneri aerobic bottle, most likely possible skin contaminant - second set with no growth. Hemodynamically she has been stable. She will be down stepped to cefpodoxime to complete a 10- day course and will complete 5 days of doxycycline. discharge discussed with DR Ochoa [place] Meds and New Rx's Prescriptions: New prednisone 20 mg Tablet 40 mg PO DAILY Qty: 7 0RF cefpodoxime 200 mg tablet 200 mg PO BID Qty: 10 0RF Rx Instructions: must administer with a meal/food doxycycline hyclate 100 mg capsule 100 mg PO BID Qty: 3 0RF Continued ranitidine HCl 150 mg tablet 150 mg PO BID Qty: 180 4RF Patient Comments: not on pt MAR from the [facility] meloxicam 15 MG tablet 15 mg PO DAILY Patient Comments: not on pt MAR from the [facility] alendronate 70 MG tablet 70 mg PO .WEEKLY Patient Comments: not on pt MAR from the [facility] aspirin [Aspir-81] 81 MG tablet,delayed release (DR/EC) 81 mg PO DAILY Patient Comments: not on pt MAR from the [facility] risperidone [Risperdal] 2 MG tablet 2 mg PO HS Patient Comments: not on pt MAR from the [facility] sodium bicarbonate 650 MG tablet 1,300 mg PO BID Patient Comments: not on pt MAR from the [facility] paroxetine HCl 20 MG tablet 20 mg PO DAILY Patient Comments: not on pt MAR from the [place] Premarin 0.625 MG tablet 0.625 mg PO DAILY Patient Comments: not on pt MAR from the [facility] nifedipine [Adalat CC] 60 MG tablet extended release 60 mg PO DAILY Patient Comments: not on pt MAR from the [facility] multivitamin 1 EACH capsule 1 tab PO DAILY Patient Comments: not on pt MAR from the [facility] calcium carbonate [Tums] 200 MG tablet,chewable 1 tab PO TID Patient Comments: not on pt MAR from the [facility] oxycodone-acetaminophen 1 TAB tablet 1 tab PO Q4H PRN PRN (Reason: Pain) Qty: 60 0RF Patient Comments: not on pt MAR from the [facility] hydrocodone-acetaminophen 1 TAB tablet 0.5 - 1 tab PO Q4H PRN PRN (Reason: Pain) Qty: 20 0RF Patient Comments: not on pt MAR from the [facility] dextromethorphan-guaifenesin 10-100 mg/5 mL Liquid 10 ml PO Q4H PRN PRN (Reason: Cough) acetaminophen [Acetaminophen Extra Strength] 500 mg Tablet 500 mg PO TID ipratropium-albuterol 18-103 mcg/actuation Aerosol 1 spray INHALATION Q4H WHILE AWAKE citalopram [Celexa] 20 mg Tablet 15 mg PO DAILY ergocalciferol (vitamin D2) [Drisdol] 1,250 mcg (50,000 unit) Capsule See Rx Instructions .ROUTE .COMPLEX Rx Instructions: Take monthly risperidone [Risperdal] 0.5 mg Tablet 0.5 mg PO BID prednisone 10 mg Tablet See Rx Instructions .ROUTE .COMPLEX Patient Comments: not on pt MAR from the [facility] Rx Instructions: 40mg once daily on May 07 & May 08 30mg once daily on May 09 & May 10 20mg once daily on May 11 & May 12 10mg once daily on May 13 & May 14 and then STOP omeprazole 20 mg Capsule,Delayed Release(Dr/Ec) 20 mg PO DAILY tramadol 100 mg Tablet 100 mg PO BID albuterol 90 mcg/actuation Aerosol 90 mcg INHALATION Q4H PRN Discharge Instructions Instructions: Chronic Respiratory Failure (GEN), Acute Respiratory Failure (GEN) Stand Alone Forms: Nursing Discharge Form Referrals: Divya Beverly [Primary Care Provider] - Activity:: Activity as Tolerated Equipment/Supplies:: No Equipment Needed Diet:: As Tolerated DS: Summary Time Spent with Patient providing and/or coordinating discharge services: Greater than 30 minutes Status at Discharge Functional status at discharge: uses cane/walker Overall status at discharge: patient is back to baseline Mental Status: mental status grossly normal and other Speech and Movement: speech and movement normal Mood: congruent mood and other Affect: normal affect Exam Const General: cooperative and no acute distress Nutritional Appearance: average body habitus Orientation: alert and awake HENMT Head: normal to inspection, normocephalic and atraumatic Face and sinus: normal facial exam Mouth: oral mucosae normal Chest Chest: normal inspection of the chest Resp Effort & Inspection: normal respiratory effort Auscultation: diminished lung sounds (scattered course breath sound) bilaterally in the lower lung gillespie Cardio Rate: regular rate Rhythm: regular rhythm GI Inspection: normal to inspection Palpation: soft Auscultation: normal bowel sounds Neuro General: patient alert, patient awake, moves all extremities and no focal motor deficits Extrem General: normal to inspection and full ROM Psych Mental Status: mental status grossly normal and other Speech and Movement: speech and movement normal Mood: congruent mood and other Affect: normal affect DS: Data Vitals/I&O Vitals and I&O: Vital Signs Temperature 36.4 C L 10/27/22 19:37 Temperature Source Tympanic 10/27/22 19:37 Pulse 98 H 10/27/22 19:37 Pulse Rhythm Regular 10/28/22 10:45 Pulse 109 H 10/23/22 22:20 Respiratory Rate 18 10/27/22 19:37 Respiratory Effort Normal, Non-Labored 10/28/22 10:45 Respiratory Depth Shallow 10/28/22 10:45 Respiratory Pattern Normal 10/28/22 10:45 Blood Pressure 164/83 H 10/27/22 19:37 Blood Pressure Mean 68 10/23/22 20:45 Pulse Oximetry 89 L 10/27/22 19:37 Respiratory End-tidal CO2 12 10/23/22 20:02 Oxygen Delivery Method Room Air 10/27/22 19:37 Oxygen Flow Rate 0 10/27/22 19:37 Pain Level 0 10/27/22 19:37 Comment pT refused VS at this time 10/28/22 07:20 Intake & Output 10/27/22 10/28/22 10/28/22 23:59 11:59 23:59 Intake Total 300 / 550 360 / 360 Balance 300 / 550 360 / 360 Weight 65.9 kg Intake: IV 300 / 550 160 / 160 Oral 200 / 200 Other: Urine Color Yellow Comment pt hitting and screaming while changing her, massively incontinent pt was soaked in urine had to change whole bed Voiding Methods Diaper Incontinent Incontinent Data Completed and Pending Labs on day of discharge: Labs from last 24 hours 10/28/22 10/28/22 10/28/22 05:35 05:35 05:35 WBC Pending RBC Pending Hgb Pending Hct Pending MCV Pending MCH Pending MCHC Pending RDW Pending Plt Count Pending MPV Pending Immature Gran % Pending Neutrophils % Pending Band Neutrophils % Lymphocytes % Pending Atypical Lymphs % Monocytes % Pending Eosinophils % Pending Basophils % Pending Metamyelocytes % Myelocytes % Promyelocytes % Other Cells % Nucleated RBC % Absolute Neutrophils Pending Absolute Lymphocytes Pending Absolute Monocytes Pending Absolute Eosinophils Pending Absolute Basophils Pending RBC Morphology Polychromasia Hypochromasia Poikilocytosis Basophilic Stippling Anisocytosis Microcytosis Macrocytosis Spherocytes Tear Drop Cells Ovalocytes Stomatocytes Lares-[place] Bodies [place] Cells/Echinocytes Acanthocytes (Spur) Schistocytes Sodium Pending Potassium Pending Chloride Pending Carbon Dioxide Pending Anion Gap Pending BUN Pending Creatinine Pending Est GFR (CKD-EPI 2020) Pending Glucose Pending Calcium Pending Magnesium Pending C-Reactive Protein Pending Procalcitonin Pending Vancomycin Trough Random Vancomycin 10/28/22 10/27/22 10/27/22 05:35 15:00 11:00 WBC RBC Hgb Hct MCV MCH MCHC RDW Plt Count MPV Immature Gran % Neutrophils % Band Neutrophils % Lymphocytes % Atypical Lymphs % Monocytes % Eosinophils % Basophils % Metamyelocytes % Myelocytes % Promyelocytes % Other Cells % Nucleated RBC % Absolute Neutrophils Absolute Lymphocytes Absolute Monocytes Absolute Eosinophils Absolute Basophils RBC Morphology Polychromasia Hypochromasia Poikilocytosis Basophilic Stippling Anisocytosis Microcytosis Macrocytosis Spherocytes Tear Drop Cells Ovalocytes Stomatocytes Lares-[place] Bodies [place] Cells/Echinocytes Acanthocytes (Spur) Schistocytes Sodium Potassium Chloride Carbon Dioxide Anion Gap BUN Creatinine Est GFR (CKD-EPI 2020) Glucose Calcium Magnesium C-Reactive Protein Procalcitonin Cancelled Vancomycin Trough Cancelled Random Vancomycin Pending 10/27/22 10/27/22 11:00 11:00 WBC Cancelled RBC Cancelled Hgb Cancelled Hct Cancelled MCV Cancelled MCH Cancelled MCHC Cancelled RDW Cancelled Plt Count Cancelled MPV Cancelled Immature Gran % Cancelled Neutrophils % Cancelled Band Neutrophils % Cancelled Lymphocytes % Cancelled Atypical Lymphs % Cancelled Monocytes % Cancelled Eosinophils % Cancelled Basophils % Cancelled Metamyelocytes % Cancelled Myelocytes % Cancelled Promyelocytes % Cancelled Other Cells % Cancelled Nucleated RBC % Cancelled Absolute Neutrophils Cancelled Absolute Lymphocytes Cancelled Absolute Monocytes Cancelled Absolute Eosinophils Cancelled Absolute Basophils Cancelled RBC Morphology Cancelled Polychromasia Cancelled Hypochromasia Cancelled Poikilocytosis Cancelled Basophilic Stippling Cancelled Anisocytosis Cancelled Microcytosis Cancelled Macrocytosis Cancelled Spherocytes Cancelled Tear Drop Cells Cancelled Ovalocytes Cancelled Stomatocytes Cancelled Lares-[place] Bodies Cancelled [place] Cells/Echinocytes Cancelled Acanthocytes (Spur) Cancelled Schistocytes Cancelled Sodium Cancelled Potassium Cancelled Chloride Cancelled Carbon Dioxide Cancelled Anion Gap Cancelled BUN Cancelled Creatinine Cancelled Est GFR (CKD-EPI 2020) Cancelled Glucose Cancelled Calcium Cancelled Magnesium C-Reactive Protein Cancelled Procalcitonin Vancomycin Trough Random Vancomycin Preliminary micro results at discharge 10/25/22 13:35 Blood Culture - Preliminary Blood NO GROWTH 48 HOURS 10/25/22 13:35 Blood Culture - Preliminary Blood NO GROWTH 48 HOURS PFSH All Active Problems (Updated 10/26/22 @ 08:53 by BARON Machado) Gram-positive bacteremia (Acute) Right shoulder pain (Acute) Constipation (Acute) Palliative care patient (Acute) Fall (Acute) Acute and chronic respiratory failure with hypercapnia (Acute) Onychomycosis (Acute) Schizophrenia (Chronic) COPD (chronic obstructive pulmonary disease) (Chronic) Medical History Adhesive capsulitis Age related osteoporosis Dysthymic disorder Emphysema of lung History of tobacco use Hypertension Olecranon bursitis Recurrent vomiting Surgical History History of appendectomy History of total abdominal hysterectomy Social History Smoking/Tobacco Use Status: Former Tobacco Use tobacco type: cigarettes Smoking risk assessment performed?: Yes Alcohol Intake: former Drug use: Never Housing: fdc Additional Social history: Sister, Bridget Joseph, he is her guardian. [phone] Time Spent with Patient Time Spent with Patient: 45-69 minutes Time was spent: preparing to see the patient(eg.review tests), obtaining and/or reviewing separately otained hiistory, ordering medications,tests, procedures, counseling the patient and care coordination
[2022-10-28 12:20] VITALS: BP 132/82; PULSE 100; RESP 18; TEMP 36.3; O2SAT 94
--- NOTE | 2022-10-28 15:07 | PDOC.CMDIS ---
Date of service: 10/28/22 Time of Service: 15:07 LACE Index Scoring Tool Questions: Length of Stay (in days): 4 - 6 Was the patient admitted via the E.D.?: Yes Comorbidities: Chronic Pulmonary Disease E.D. Visits: 0 Answers: Total Score: 9 Risk of Readmission: Low Risk Care Management Discharge Plan Reason for Hospitalization: acute and chronic respiratory failure Discharge Plan: Pennie will return to [facility] when medically cleared. She will follow up with the facility providers and plan of care and transport via W/C van coordinated by CM. Patient/Family Education Needs: Review discharge instructions, discuss Ask Me Three. Services Needed at Discharge: Penitentiary Facility and Transportation
== END 2022-10-28 14:53 | disposition home or self-care (01) | DRG 190 ==
LOC: ER 22:38 → MS 23:02
PROVIDERS: Admitting Provider Family Medicine; Emergency Provider Physician Assistant; PCP Family Medicine; Visit Provider Family Medicine
DX: J44.1 Chronic obstructive pulmonary disease with (acute) exacerbation (principal); J96.22 Acute and chronic respiratory failure with hypercapnia; Z66 Do not resuscitate; M81.0 Age-related osteoporosis without current pathological fracture; I10 Essential (primary) hypertension; M70.20 Olecranon bursitis, unspecified elbow; K59.00 Constipation, unspecified; W19.XXXA Unspecified fall, initial encounter; M25.511 Pain in right shoulder; Z87.891 Personal history of nicotine dependence
CPT/HCPCS: 36415; 74177; 80048; 80053; 82805; 84145; 85027; 87040; 87077; 87081; 87637; 93005; 94640; 96365; 96367; 96375; 99291; J1650; 70450; 71260; 73030; 80202; 81003; 83605; 83735; 83880; 84443; 84484; 85025; 86140; 87186; 93010; 94760; 99223; 99232; 99233; 99239; G0378; J0131; J1885; J2930; J3490; J7512; J7613; J7620

== ENCOUNTER 2023-08-09 15:13 | Emergency (ER) | payer MEDICARE, MEDICAID, SELFPAY ==
[2023-08-09 15:14] VITALS: BP 146/104; PULSE 119; RESP 24; TEMP 36.9
[2023-08-09] MEDS: OLANZapine 10 MG VIAL IM (15:23)
--- NOTE | 2023-08-09 15:42 | ED.GENADUL_ITS ---
Discharge Plan Disposition Patient Disposition: Long-Term Facility(SNF) Condition: Stable Discharge Details Clinical Impression: Fall Primary Care Provider: Divya Beverly ED Provider: Lore Tyler Home Meds and New Rx's Prescriptions: No Action risperidone [Risperdal] 2 MG tablet 1 mg PO HS dextromethorphan-guaifenesin 10-100 mg/5 mL Liquid 10 ml PO Q4H PRN PRN (Reason: Cough) acetaminophen [Acetaminophen Extra Strength] 500 mg Tablet 1,000 mg PO TID ipratropium-albuterol 18-103 mcg/actuation Aerosol 1 spray INHALATION Q4H WHILE AWAKE citalopram [Celexa] 20 mg Tablet 15 mg PO DAILY ergocalciferol (vitamin D2) [Drisdol] 1,250 mcg (50,000 unit) Capsule See Rx Instructions .ROUTE .COMPLEX Rx Instructions: Take monthly risperidone [Risperdal] 0.5 mg Tablet 0.5 mg PO BID omeprazole 20 mg Capsule,Delayed Release(Dr/Ec) 20 mg PO DAILY tramadol 100 mg Tablet 100 mg PO BID albuterol 90 mcg/actuation Aerosol 90 mcg INHALATION Q4H PRN docusate sodium [Colace] 100 mg Capsule 100 mg PO HS olanzapine 2.5 mg tablet 2.5 mg PO QHS Discharge Instructions Additional Instructions: please use walker for safe walking resume normal care HPI General Date/Time Provider Initiated Documentation: 08/09/23 15:19 . Limitations to Documentation: altered mental status . Information obtained by: EMS . HPI Narrative: 77-year-old female with past medical history of schizophrenia and COPD presents via ambulance from the [facility]. They report today that she was ambulating with her walker and fell, landing on her left hip. They deny any head injury or loss of consciousness. History is very limited from the patient herself. She repeatedly says take me back you f-ing f-s and doesn't really participate in exam or answer questions. per EMS they were told this is the patient's baseline. Related Data Home Medications Medication Instructions Recorded Confirmed risperidone 2 mg tablet (Risperdal) 1 mg PO HS 08/22/08/09/23 acetaminophen 500 mg tablet 1,000 mg PO TID 05/06/20 08/09/23 (Acetaminophen Extra Strength) citalopram 20 mg tablet (Celexa) 15 mg PO DAILY 05/06/20 08/09/23 dextromethorphan-guaifenesin 10 10 ml PO Q4H PRN PRN Cough 05/06/20 08/09/23 mg-100 mg/5 mL oral liquid ergocalciferol (vitamin D2) 1,250 See Rx Instructions .Route .COMPLEX 05/06/20 08/09/23 mcg (50,000 unit) capsule (Drisdol) ipratropium 18 mcg-albuterol 103 1 spray inhalation Q4H WHILE AWAKE 05/06/20 08/09/23 mcg/actuation aerosol inhaler risperidone 0.5 mg tablet 0.5 mg PO BID 05/06/20 08/09/23 (Risperdal) albuterol 90 mcg/actuation aerosol 90 mcg inhalation Q4H PRN 10/23/22 08/09/23 inhaler omeprazole 20 mg capsule,delayed 20 mg PO DAILY 10/23/22 08/09/23 release tramadol 100 mg tablet 100 mg PO BID 10/23/22 08/09/23 docusate sodium 100 mg capsule 100 mg PO HS 10/28/22 08/09/23 (Colace) olanzapine 2.5 mg tablet 2.5 mg PO QHS 08/09/23 08/09/23 Allergies Allergy/AdvReac Type Severity Reaction Status Date / Time wool Allergy Intermediate Skin Rash Uncoded 08/09/23 15:20 General Stated Complaint: Orthopedic SARITHA: 4 Exam Narrative Exam Narrative: Review of Systems: All systems reviewed & are unremarkable except as noted in HPI and below Well-developed, yelling the F word repeatedly, laying on left side NCAT PERRL, normal conjunctiva RRR Unlabored respiratory effort Nondistended abdomen, soft non tender midline back non tender pelvis stable , no appreciable hip tenderness or bruising noted Extremities w/o deformity, no cyanosis, no edema No rashes or lesions. no focal neurologic deficits Appropriate mood and affect Course Vital Signs Vital signs: Vital Signs Temperature 36.9 C 08/09/23 15:14 Pulse 119 H 08/09/23 15:14 Respiratory Rate 08/09/23 15:14 Blood Pressure 146/104 H 08/09/23 15:14 Temperature 36.9 C 08/09/23 15:14 Temperature Source Temporal Artery Scan 08/09/23 15:14 Pulse 119 H 08/09/23 15:14 Respiratory Rate 24 08/09/23 15:14 Respiratory Effort Normal, Non-Labored 08/09/23 15:19 Blood Pressure 146/104 H 08/09/23 15:14 Blood Pressure Position Supine 08/09/23 15:14 Oxygen Delivery Method Room Air 08/09/23 15:14 Oxygen Flow Rate 0 08/09/23 15:14 Pain Level 0 08/09/23 15:34 Medical Decision Making evaluation after fall. zyprexa given to facilitate examination. patient unable to provide additional information, though between cursing she does have some coherent statements and started following commands after the zyprexa. she has no signs of trauma on exam, but will get imaging of hips and plevis. XR obtained and this didn't demonstrate a fracture per radiology but ortho was concerned for possible fracture on left hip. she was sent for CT imaging to confirm. ct imaging was not remarkable for fracture. she doesn't have any tenderness over that left hip. she is stable for DC home back to the [facility]. Medical Records Medical records reviewed: Yes I reviewed the patient's medical records. Quality:SDOH Health Related Social Needs: No Data to Display PFSH All Active Problems (Updated 08/09/23 @ 16:46 by Lore Tyler MD) Fall (Acute) Right shoulder pain (Acute) Constipation (Acute) Fall (Acute) Acute and chronic respiratory failure with hypercapnia (Acute) Onychomycosis (Acute) Schizophrenia (Chronic) COPD (chronic obstructive pulmonary disease) (Chronic) Medical History Palliative care patient Age related osteoporosis Olecranon bursitis Adhesive capsulitis History of tobacco use Recurrent vomiting Hypertension Emphysema of lung Dysthymic disorder Surgical History History of total abdominal hysterectomy History of appendectomy Social History Smoking/Tobacco Use Status: Former Tobacco Use tobacco type: cigarettes Smoking risk assessment performed?: Yes Alcohol Intake: former Drug use: Never Housing: half-way Additional Social history: Sister, Bridget Joseph, he is her guardian. [phone]
--- NOTE | 2023-08-09 16:08 | DI.RAD_ITS ---
Exam(s) XR HIP PELVIS ADULT BL EXAM: XR HIP PELVIS ADULT BL CLINICAL HISTORY: FALL. TECHNIQUE: 2D digital imaging was performed. COMPARISON: No exams were available for comparison FINDINGS: 3 views No evidence of pelvic nor obvious hip fracture. No hip joint space narrowing.. No osseous lesions. IMPRESSION: No acute osseous findings. DATA REPOSITORY: RADIATION DOSE DELIVERED:
--- NOTE | 2023-08-09 17:15 | DI.CT_ITS ---
Exam(s) CT PELVIC WO EXAM: CT PELVIC WO CLINICAL HISTORY: EVAL FOR HIP FRACTURE. TECHNIQUE: Imaging Protocol: Axial computed tomography images with coronal and sagittal reformatted images were created and reviewed CONTRAST MATERIAL: Intravenous: none Oral: None COMPARISON: CT CT CHEST/ABD/PEL W from 10/23/2022 FINDING: PELVIS: OSSEOUS: No pelvic nor hip fractures evident.No significant osseous lesions evident. Minimal degener ative changes in the hips. ANTERIOR ABDOMINAL WALL/GI:No evidence of significant anterior abdominal wall nor inguinal hernia in the pelvis evident.No obvious bowel obstruction. No evidence of appendicitis. Sigmoid diverticulosi s but no evidence of acute sigmoid diverticulitis.No free fluid in the pelvis. LYMPH NODES: There is no intrapelvic nor inguinal adenopathy. URINARY BLADDER: No calculi nor obvious masses evident. There is mild uniform thickening of the urin dayanna bladder wall. REPRODUCTIVE: Uterus is surgically absent. No abnormal adnexal masses. No free fluid.. IMPRESSION: 1. No pelvic nor hip fractures evident. 2. Sigmoid diverticulosis without evidence of acute diverticulitis. 3. Mild uniform thickening of the urinary bladder wall. RADIATION DOSE DELIVERED: 451.61mGy.cm Total DLP DATA REPOSITORY: All CT scans at this facility are submitted to the National Radiology Data Registry (NRDR) Dose Index Registry (DIR) with the [employer] (A[employer]). RADIATION OPTIMIZATION: All CT scans at this facility use at least one of these dose optimization te chniques: automated exposure control; mA and/or kV adjustment per patient size (includes targeted exa ms where dose is matched to clinical indication); or iterative reconstruction.
[2023-08-09 18:15] VITALS: RESP 22
== END 2023-08-09 18:52 | disposition skilled nursing facility (03) ==
PROVIDERS: Emergency Provider Emergency Medicine; PCP Family Medicine
DX: Z04.3 Encounter for examination and observation following other accident (principal); I10 Essential (primary) hypertension; J44.9 Chronic obstructive pulmonary disease, unspecified; F20.9 Schizophrenia, unspecified; Z91.81 History of falling; Z87.891 Personal history of nicotine dependence
CPT/HCPCS: 73521; 99284; 72192; J2359